=== PATIENT | male | born 1950 | race Caucasian/White ===

== ENCOUNTER → 2017-09-21 | Outpatient (CLI) | payer OTHER ==
[~2017-09-21] MED LIST: IBUP600T44 PO; OXYC-57 PO
--- NOTE | 2017-09-21 08:39 | DIAGNOSTIC IMAGING REPORT ---
CT LUNG SCREENING, LOW DOSE WITH COMPUTER-AIDED DETECTION (CAD) CLINICAL HISTORY: 45 pack-year smoking history. COMPARISON STUDY: March 22, 2015 CT DOSE: 94.98 mGy.cm TECHNIQUE: Low-dose helical CT was acquired without intravenous contrast from lung apices to bases and reconstructed at 2.5 mm every 2 mm. CAD was utilized for this study. A dose lowering technique was utilized adhering to the principles of ALARA. FINDINGS: Thyroid: Imaged portions of the thyroid gland are normal in appearance. Thoracic aorta: The thoracic aorta is normal in course and caliber, noting standard 3 vessel arch anatomy. Heart: The heart is normal in size and configuration, without pericardial effusion. Lungs and pleural spaces: There are no pleural effusions. There is moderate pulmonary emphysema. There is no focal pulmonary consolidation. There is biapical scarring. Mediastinum: There is no mediastinal lymphadenopathy. Araceli: There is no evidence of pathologic hilar adenopathy given the limitations of a noncontrast study Axilla: Clear. Upper abdomen: Partially visualized upper abdominal viscera is within normal limits. Skeletal structures: There are no lytic or blastic osseous lesions. IMPRESSION: No suspicious pulmonary masses. No evidence of pathologic adenopathy. One-year screening is recommended in follow-up. CAD FINDINGS: Overall Lung RADS Category: 1 Lung RADS Management Recommendation: Continue annual lung cancer screening. Lung RADS Follow Up Date: 2018-09-21 Lung RADS Nodule ID: Electronically signed by: Tobi Acharya M.D. 09/21/2017 8:38 AM Dictated Date/Time: 09/21/2017 8:33 AM
== END | disposition home or self-care (01) ==
LOC: C.CTS 08:22
PROVIDERS: ATTEND Internal Medicine Pulmonary Disease
DX: J44.9 Chronic obstructive pulmonary disease, unspecified (principal); F17.200 Nicotine dependence, unspecified, uncomplicated

== ENCOUNTER 2024-02-26 03:49 | Inpatient (IN) ==
[2024-02-26] MEDS: KETOROLAC TROMETHAMINE 15 MG/ML VIAL IV STA (04:26)
[2024-02-26] MEDS: ONDANSETRON INJ 2 MG/ML 2 ML VIAL IV STA ×2 (04:39→07:51)
[2024-02-26] MEDS: ONDANSETRON INJ 2 MG/ML 2 ML VIAL ONE (04:40)
[2024-02-26 04:43] LABS: Basophils # (auto) 0.02 K/uL (0.00-0.20); Basophils % (auto) 0.2 %; Eosinophils # (auto) 0.11 K/uL (0.00-0.50); Eosinophils % (auto) 1.2 %; Hematocrit (blood only) 42.2 % (42.0-52.0); Hemoglobin 13.9 g/dl (14.0-18.0); Immature Granulocytes # (auto) 0.04 K/uL (0.01-0.20); Immature Granulocytes % (auto) 0.4 %; Lymphocytes % (auto) 13.8 %; Mean Corpuscular Hemoglobin 30.8 pg (25.0-34.0); Mean Corpuscular Hgb Conc 32.9 g/dL (32.0-36.0); Mean Corpuscular Volume 93.4 fL (80.0-100.0); Mean Platelet Volume 10.3 fL (9.4-12.4); Monocytes % (auto) 1.1 %; Neutrophils # (auto) 7.82 K/uL (1.40-6.50); Neutrophils % (auto) 83.3 %; Platelet Count 208 K/uL (130-400); RDW Coefficient of Variation 12.1 % (11.5-14.5); Red Blood Count 4.52 M/uL (4.70-6.10); White Blood Count 9.39 K/ul (4.8-10.8)
[2024-02-26 04:53] LABS: Albumin Globulin Ratio 1.4 (0.9-2); Albumin Level 4.3 gm/dl (3.4-5.0); BUN Creatinine Ratio 26.3 (10-20); Bilirubin,Total 0.5 mg/dl (0.2-1.0); Calcium 9.1 mg/dl (8.6-10.3); Creatinine Clr Calc Pharmacy 78.2 ml/min; Est GFR (Non-African American) 74.2 ml/min; Globulin 3.1 gm/dl (2.5-4.0); Total Protein 7.4 gm/dl (6.0-8.3)
[2024-02-26] MEDS: fentaNYL citrate PF 100 MCG/2 ML VIAL IV STA (05:35)
[2024-02-26] MEDS: OPTIRAY 320 125ml IV ONE (05:52)
[2024-02-26 06:30] LABS: Appearance Urine Clear (Clear); Bacteria Urine Automated None Seen (None Seen); Bilirubin Urine Negative (Negative); Blood Urine Trace (Negative); Cast Urine Automated 0-2 /lpf (0-2); Color Urine Yellow; Epithelial Cell Urine Auto 0-2 /hpf (0-2); Glucose Urine UA Negative (Negative); Ketones Urine Trace (Negative); Leukocyte Esterase Urine Negative (Negative); Nitrite Urine Negative (Negative); Protein Urine Negative (Negative); RBC Urine Automated 0-2 /hpf (0-2); Specific Gravity Urine > 1.045 (1.000-1.030); Urobilinogen Urine Negative (Negative); WBC Urine Automated 0-5 /hpf (0-5)
--- NOTE | 2024-02-26 07:25 | Emergency Department Note ---
Impression & Plan Duodenal mass, Abdominal pain, acute, periumbilical, Low back pain admit to the [facility] ED Provider Note NAME: SANJEEV ALEMAN Jr AGE: 73 SEX: Male INFORMANT: Patient ED PROVIDER(S): Lindsay Hurtado DO CHIEF COMPLAINT: abdominal pain and back pain PLAN: Disposition: admit to the [facility] MEDICAL DECISION MAKING: this is a 73-year-old male patient who presents to the emergency department with abdominal pain and back pain. The patient had sudden onset of pain just below his umbilicus around 11:30 PM. It radiated through to his mid to low back. He has never had pain like this before. Patient was unable to get comfortable and came to the emergency department for evaluation. Patient denies any surgical history. He was quite nauseated but had no vomiting. He had no leukocytosis or anemia. BUN was slightly elevated at 26. Creatinine was normal. Glucose was 132. Urinalysis revealed trace ketones and trace blood but was otherwise negative. Patient was medicated with IV Toradol initially with no significant relief to his discomfort. He then went on to receive IV fentanyl and IV Dilaudid. CT angiogram of the abdomen pelvis showed evidence of a necrotic mass of the duodenum. Patient continued to complain of pain and required additional doses of IV Dilaudid and will need to go for MRI of the abdomen to further characterize this mass noted in and around the duodenum. Care/management discussed with: Patient and his , the grain oilseed or pasture farm manager and the [place] Hospitalist. Triage Nursing notes: reviewed and agree with them. Vital Signs: reviewed and remarkable for tachycardia Additional History obtained from: patient's is at the bedside Conditions affecting care: hypertension Differential Diagnosis: AAA, aortic dissection of the abdomen, gastritis, colitis, appendicitis, ureteral colic Diagnostics, independently interpreted by me: ECG: normal sinus rhythm at [address] segment elevation or signs of ischemia. There is no significant ectopy. Cardiac Monitoring: Normal sinus rhythm at 92 Imaging studies: CT scan of the abdomen/pelvis: As per stat rad HPI: 73 year old Male arrives for evaluation of abdominal pain. patient has sudden onset of pain just below the umbilicus around 11:30 PM. It radiated through to his mid to low back. He has never had pain like this before. It was associated with nausea but no vomiting.. PAST MEDICAL HISTORY: See Below, PAST SURGICAL HISTORY: None, SOCIAL HISTORY: he is , HOME MEDICATIONS: see list ALLERGIES: See Below VITALS: sulfa drugs PHYSICAL EXAMINATION: HEENT: Head - normocephalic and atraumatic. Pupils are equal, round, and reactive to light. Extraocular eye muscles are intact, and sclera are anicteric. Nose - moist nasal mucosa without discharge. Mouth - moist buccal mucosa. Oropharynx is nonerythematous and there is no tonsillar exudate or edema noted. Neck: Supple; no JVD Or cervical lymphadenopathy Heart: Regular rate and rhythm. There is a normal S1 and S2 with no murmurs, clicks, or gallops appreciated. Lungs: Clear to auscultation bilaterally with no wheezes, rales, or rhonchi. Abdomen: Soft, Moderate tenderness to palpation around the umbilicus with good bowel sounds. There are no palpable pulsatile masses or hepatosplenomegaly. There is no guarding, rigidity, or rebound noted. Extremities: No evidence of cyanosis, clubbing, or edema. There are easily palpable peripheral pulses. Skin: warm and dry with good turgor and no rashes. the emergency department treatment: Cardiac monitoring, IV Toradol,IV Zofran, IV fentanyl, IV normal saline,IV Dilaudid x 2 emergency department course: The patient was evaluated in room C-9. A complete history and physical was performed. An IV lock was initiated and labs were drawn as above. Orders were placed by protocol. The patient was medicated with IV Toradol for pain. He was given IV normal saline bolus And advanced to IV fentanyl and IV Zofran for pain and nausea. He went for CT scan of the abdomen/pelvis. upon returning from radiology, the patient continued to complain of discomfort and was given IV Dilaudid. This did give him some relief of his discomfort. I reviewed the results of the CT scan with the patient and his . He continued to complain of periumbilical pain that was returning. He went on to receive a second dose of IV Dilaudid. I discussed the case with the [facility] Hospitalist and they will evaluate for inpatient care and further evaluation with MRI of The duodenum. Past Med/Surg History Problem List (Updated 02/27/24 @ 07:39 by Lindsay Hurtado DO) Low back pain (Acute) Abdominal pain, acute, periumbilical (Acute) Duodenal mass (Acute) Bilateral inguinal hernia Duodenal mass Abdominal pain Hematoma of left lower leg (Acute) Leg wound, left Hematoma (Acute) Cellulitis (Acute) Multiple pulmonary nodules determined by computed tomography of lung Solitary pulmonary nodule Lung nodule History of tobacco abuse Chronic obstructive pulmonary disease Pulmonary emphysema Medical History Personal history of nicotine dependence History of hypertension Surgical History History of ankle surgery Family History Unknown Cerebral aneurysm COPD (chronic obstructive pulmonary disease) Social History Smoking Status: Former smoker Tobacco Type: Cigarettes Age Started Using Tobacco: 12; Age Quit Using Tobacco: 67; packs per day: 2; Cigarettes Per Day: 40; Second Hand Exposure: No; Do You Dip or Chew Tobacco: No; Hx Alcohol Use: Yes Alcohol type: beer Alcohol Intake Frequency: Monthly or Less Hx Substance Use: No Preferred Language: Estonian Communication Ability: Effective Visual Impairment: Limited Hearing Ability: Normal Block Cutter Required: No Beliefs That Will Affect Care: None marital status: Current Living Situation: Spouse current occupational status: retired Feels Safe at Home: Yes Diet: regular caffeine: Yes Assistive Devices: Glasses Allergies Allergies Allergy/AdvReac Type Severity Reaction Status Date / Time Sulfa (Sulfonamide Allergy Unknown Verified 02/23/24 09:06 Antibiotics) Home Meds Home Medications Medication Instructions Recorded Confirmed multivitamin (Daily Multi-Vitamin 1 tab PO DAILY 04/13/19 02/26/24 tablet) valsartan 320 mg tablet 320 mg PO DAILY 04/13/19 02/26/24 coenzyme Q10 [Vitaline CoQ10] 1 tab PO DIRECTED 10/30/22 02/26/24 hydrochlorothiazide 25 mg tablet 12.5 mg PO DAILY 10/30/22 02/26/24 red yeast rice 600 mg capsule 1,200 mg PO DAILY 10/30/22 02/26/24 albuterol sulfate 90 mcg/actuation 2 inh inhalation UD PRN Other 02/23/24 02/26/24 aerosol inhaler (Ventolin HFA) Previous Rx's Medication Instructions Recorded fluticasone fur. 100 mcg-umeclid 1 inh inhalation DAILY #60 ea 01/29/23 62.5 mcg-vilant 25 mcg inhalat.powder (Trelegy Ellipta) Results & Data (ED) Vital Signs Vital Signs - 24 hr 02/26/24 07:42 02/26/24 08:00 02/26/24 08:00 Pulse Rate 92 H 93 H Pulse Rate from SpO2 Sensor 90 94 H Respiratory Rate 16 18 Blood Pressure 121/80 Blood Pressure Mean 97 Pulse Oximetry 94 95 02/26/24 08:30 02/26/24 08:30 Pulse Rate 89 Pulse Rate from SpO2 Sensor 92 H Respiratory Rate 17 Blood Pressure 139/75 Blood Pressure Mean 93 Pulse Oximetry 91 Laboratory Data 02/27/24 05:48 02/27/24 05:48 Lab Results 02/26/24 02/26/24 Range/Units 04:20 06:20 WBC 9.39 (4.8-10.8) K/ul RBC 4.52 L (4.70-6.10) M/uL Hgb 13.9 L (14.0-18.0) g/dl Hct 42.2 (42.0-52.0) % MCV 93.4 (80.0-100.0) fL MCH 30.8 (25.0-34.0) pg MCHC 32.9 (32.0-36.0) g/dL RDW Std Deviation 42.0 (36.4-46.3) fL RDW Coeff of Babak 12.1 (11.5-14.5) % Plt Count 208 (130-400) K/uL MPV 10.3 (9.4-12.4) fL Immature Gran % (Auto) 0.4 % Neut % (Auto) 83.3 % Lymph % (Auto) 13.8 % [place] % (Auto) 1.1 % Eos % (Auto) 1.2 % Baso % (Auto) 0.2 % Neut # (Auto) 7.82 H (1.40-6.50) K/uL Lymph # (Auto) 1.30 (1.20-3.40) K/uL [place] # (Auto) 0.10 L (0.11-0.59) K/uL Eos # (Auto) 0.11 (0.00-0.50) K/uL Baso # (Auto) 0.02 (0.00-0.20) K/uL Immature Gran # (Auto) 0.04 (0.01-0.20) K/uL Sodium 138 (136-145) mmol/L Potassium 4.0 (3.5-5.1) mmol/L Chloride 103 (98-107) mmol/L Carbon Dioxide 29 (21-32) mmol/L Anion Gap 6 (3-11) BUN 26 H (6-23) mg/dl Creatinine 0.99 (0.6-1.4) mg/dl Est Cr Clr Drug Dosing 78.2 ml/min Est GFR ( Amer) 86.0 ml/min Est GFR (Non-Af Amer) 74.2 ml/min BUN/Creatinine Ratio 26.3 H (10-20) Glucose 132 H (70-99(Fasting)) mg/dl Calcium 9.1 (8.6-10.3) mg/dl Total Bilirubin 0.5 (0.2-1.0) mg/dl AST 19 (13-39) U/L ALT 21 (7-52) U/L Alkaline Phosphatase 112 H (34-104) U/L Total Protein 7.4 (6.0-8.3) gm/dl Albumin 4.3 (3.4-5.0) gm/dl Globulin 3.1 (2.5-4.0) gm/dl Albumin/Globulin Ratio 1.4 (0.9-2) Lipase 23 (11-82) U/L Urine Color Yellow Urine Appearance Clear (Clear) Urine pH 5.0 (4.5-7.5) Ur Specific [place] > 1.045 H (1.000-1.030) Urine Protein Negative (Negative) Urine Glucose (UA) Negative (Negative) Urine Ketones Trace H (Negative) Urine Blood Trace H (Negative) Urine Nitrite Negative (Negative) Urine Bilirubin Negative (Negative) Urine Urobilinogen Negative (Negative) Ur Leukocyte Esterase Negative (Negative) Urine WBC (Auto) 0-5 (0-5) /hpf Urine RBC (Auto) 0-2 (0-2) /hpf U Hyaline Cast (Auto) 0-2 (0-2) /lpf U Epithel Cells (Auto) 0-2 (0-2) /hpf Urine Bacteria (Auto) None Seen (None Seen) Administered Medications Acetaminophen (Acetaminophen 325 Mg Tab) 650 mg PO Q4H PRN PRN Reason: pain/fever Stop: 03/27/24 11:17 Last Admin: 02/26/24 11:44 Dose: 650 mg Documented By: FLORENCIO Fluticasone Furoate (Fluticasone Furoate 100mcg 14 Puffs/Inhaler) 1 puffs INH DAILY [facility] Stop: 03/27/24 11:17 Last Admin: 02/26/24 13:25 Dose: Not Given Documented By: HRB Potassium Chloride/Sodium Chloride (Normal Saline W/20 Meq Kcl) 20 meq in 1,000 mls @ 100 mls/hr IV .Q10H GALINDO Stop: 03/27/24 11:17 Last Infusion: 02/27/24 02:22 Dose: 100 mls/hr Documented By: Admin: 02/26/24 20:49 Dose: 100 mls/hr Documented By: Infusion: 02/26/24 20:49 Dose: Infused Documented By: Admin: 02/26/24 13:02 Dose: 100 mls/hr Documented By: HRB Pantoprazole Sodium 40 mg/ (Dextrose) 100 mls @ 20 mls/hr IV Q5H [facility] Stop: 03/27/24 15:14 Last Infusion: 02/27/24 02:22 Dose: 8 mg/hr, 20 mls/hr Documented By: Admin: 02/27/24 01:42 Dose: 8 mg/hr, 20 mls/hr Documented By: Infusion: 02/27/24 01:42 Dose: Infused Documented By: K Admin: 02/26/24 20:47 Dose: 8 mg/hr, 20 mls/hr Documented By: Infusion: 02/26/24 20:47 Dose: Infused Documented By: Admin: 02/26/24 16:10 Dose: 8 mg/hr, 20 mls/hr Documented By: HRB Piperacillin Sod/Tazobactam (Sod 4.5 gm/ Dextrose) 100 mls @ 25 mls/hr IV Q8H GALINDO; Protocol Stop: 02/28/24 19:59 Last Admin: 02/27/24 04:41 Dose: 25 mls/hr Documented By: Infusion: 02/27/24 01:05 Dose: Infused Documented By: Admin: 02/26/24 20:48 Dose: 25 mls/hr Documented By: JUDY Oxycodone HCl (Oxycodone Hcl Ir 5 Mg Tab (Immediate Release)) 5 mg PO Q4H PRN PRN Reason: Pain Stop: 03/11/24 15:38 Last Admin: 02/27/24 01:02 Dose: 5 mg Documented By: Admin: 02/26/24 16:15 Dose: 5 mg Documented By: HRB Umeclidinium/Vilanterol (Umeclidinium/Vilanterol 62.5/25mcg 7 Puffs/Inhaler) 1 puffs INH DAILY GALINDO Stop: 03/27/24 11:17 Last Admin: 02/26/24 13:25 Dose: Not Given Documented By: YONI Discontinued Medications Fentanyl Citrate (Fentanyl Citrate Pf 100 Mcg/2 Ml Vial) 50 mcg IV NOW STA Stop: 02/26/24 05:30 Last Admin: 02/26/24 05:35 Dose: 50 mcg Documented By: KEI Gadobutrol (Gadobutrol 30ml Vial) 10 ml IV ONCE ONE Stop: 02/26/24 11:45 Last Admin: 02/26/24 11:44 Dose: 10 ml Documented By: PHILIP Hydromorphone HCl (Hydromorphone Inj 0.5 Mg/0.5 Ml Syr) 0.5 mg IV NOW STA Stop: 02/26/24 07:11 Last Admin: 02/26/24 07:52 Dose: 0.5 mg Documented By: MADAN Sodium Chloride (Nss) 500 mls @ 999 mls/hr IV .Q31M ONE Stop: 02/26/24 07:40 Last Infusion: 02/26/24 08:57 Dose: Infused Documented By: Admin: 02/26/24 07:51 Dose: 999 mls/hr Documented By: MADAN Pantoprazole Sodium 40 mg/ (Syringe) 10 mls @ 5 mls/min IV NOW ONE Stop: 02/26/24 08:14 Last Admin: 02/26/24 08:41 Dose: 5 mls/min Documented By: MADAN Pantoprazole Sodium 80 mg/ (Dextrose) 120 mls @ 480 mls/hr IV NOW ONE Stop: 02/26/24 15:10 Last Infusion: 02/26/24 16:10 Dose: Infused Documented By: Admin: 02/26/24 15:29 Dose: 480 mls/hr Documented By: YONI Piperacillin Sod/Tazobactam (Sod 4.5 gm/ Dextrose) 100 mls @ 200 mls/hr IV NOW ONE; Protocol Stop: 02/26/24 15:44 Last Infusion: 02/26/24 16:37 Dose: Infused Documented By: Admin: 02/26/24 15:50 Dose: 200 mls/hr Documented By: YONI Ioversol (Optiray 320 125ml) 120 ml IV ONCE ONE Stop: 02/26/24 05:52 Last Admin: 02/26/24 05:52 Dose: 120 ml Documented By: NAZ Ketorolac Tromethamine (Ketorolac Tromethamine 15 Mg/Ml Vial) 10 mg IV NOW STA Stop: 02/26/24 04:14 Last Admin: 02/26/24 04:26 Dose: 10 mg Documented By: RANDI Metoclopramide HCl (Metoclopramide Hcl Inj 5 Mg/Ml 2 Ml Vial) 10 mg IV NOW STA Stop: 02/26/24 18:54 Last Admin: 02/26/24 18:59 Dose: 10 mg Documented By: PATRICIA Morphine Sulfate (Morphine Sulfate 2 Mg/Ml [place]) 2 mg IV Q4H PRN PRN Reason: Pain Stop: 03/11/24 11:35 Last Admin: 02/26/24 13:01 Dose: 2 mg Documented By: YONI Ondansetron HCl (Ondansetron Inj 2 Mg/Ml 2 Ml Vial) 4 mg IV NOW STA Stop: 02/26/24 04:39 Last Admin: 02/26/24 04:39 Dose: Not Given Documented By: DAVEY Ondansetron HCl (Ondansetron Inj 2 Mg/Ml 2 Ml Vial) Confirm Administered Dose 4 mg .ROUTE .STK-MED ONE Stop: 02/26/24 04:40 Last Admin: 02/26/24 04:40 Dose: 4 mg Documented By: DAVEY Ondansetron HCl (Ondansetron Inj 2 Mg/Ml 2 Ml Vial) 4 mg IV NOW STA Stop: 02/26/24 07:11 Last Admin: 02/26/24 07:51 Dose: 4 mg Documented By: MADAN Ondansetron HCl (Ondansetron Inj 2 Mg/Ml 2 Ml Vial) 4 mg IV Q6H PRN PRN Reason: Nausea Stop: 03/27/24 11:17 Last Admin: 02/26/24 13:10 Dose: 4 mg Documented By: FLORENCIO Discharge Plan Visit Data Chief Complaint: Abdominal Pain Stated Complaint: ABD PAIN AND LOWER BACK PAIN ED Provider: Lindsay Hurtado Discharge Problem: Duodenal mass, Abdominal pain, acute, periumbilical, Low back pain Patient Disposition: Admitted As Inpatient Discharge Instructions Interventions: ED Discharge Assessment Last Done: 02/26/24 10:37
--- NOTE | 2024-02-26 07:42 | CT Scan Report ---
Exam(s): CTA ABDOMEN + PELVIS With Contrast IV Amt: 120 ml opti 320 EXAM: CT Angiography Abdomen and Pelvis With Intravenous Contrast CLINICAL HISTORY: Reason for exam: eval for AAA/dissection. TECHNIQUE: Axial computed tomographic angiography images of the abdomen and pelvis with intravenous contrast. CTDI is 27.46 mGy and DLP is 1538.21 mGy-cm. Automated exposure control was utilized for the study. A dose lowering technique was utilized adhering to the principles of ALARA. MIP reconstructed images were created and reviewed. CONTRAST: Patient received 120 ml opti 320 of IV contrast COMPARISON: No relevant prior studies available. FINDINGS: VASCULATURE: Aorta: There is calcific atherosclerotic vascular disease present, no evidence to suggest dissection or aneurysm. There is calcific atherosclerotic vascular disease. Celiac trunk and mesenteric arteries: No acute findings. No occlusion or significant stenosis. Renal arteries: No acute findings. No occlusion or significant stenosis. Iliac arteries: No acute findings. No occlusion or significant stenosis. Lung bases: Unremarkable. No mass. No consolidation. ABDOMEN: Liver: Unremarkable. No mass. Gallbladder and bile ducts: See below. Pancreas: Unremarkable. No ductal dilation. No mass. Spleen: Unremarkable. No splenomegaly. Adrenals: Unremarkable. No mass. Kidneys and ureters: Unremarkable. No hydronephrosis. No solid mass. Stomach and bowel: There is 8.5 x 5.5 x 3.3 cm partially necrotic mass demonstrated along the medial second to third portion of the duodenum the gallbladder is hydropic. There is fat and nonobstructed bowel containing indirect hernia in the right side and fat-containing indirect inguinal hernia on the left side. There is diverticulosis. PELVIS: Appendix: No findings to suggest acute appendicitis. Bladder: Unremarkable. No mass. Reproductive: Unremarkable as visualized. ABDOMEN and PELVIS: Intraperitoneal space: Unremarkable. No significant fluid collection. No free air. Bones/joints: No acute fracture. No dislocation. Soft tissues: See above. Lymph nodes: Unremarkable. No enlarged lymph nodes. IMPRESSION: Abnormality demonstrated about the duodenum the primary considerations would include inflamed duodenal diverticula, exophytic necrotic mass extending from the duodenum or less likely the pancreas considered less likely additional considerations would include pseudocyst and choledochal cyst. Communications: Verify Receipt Electronically signed by: Gerald Miller MD 02/26/24 07:41 AM
[2024-02-26] MEDS: SODIUM CHLORIDE 0.9% 500 ML IV ONE (07:51)
[2024-02-26] MEDS: HYDROmorphone INJ 0.5 MG/0.5 ML SYR IV STA (07:52)
[2024-02-26] MEDS: PANTOprazole 40 MG in SYRINGE 0 ML IV ONE (08:41)
--- NOTE | 2024-02-26 09:21 | History & Physical Report ---
Date of Service February 26, 2024 Assessment & Plan (1) Abdominal pain: Plan: Patient presents to the hospital with sudden onset of abdominal pain radiating to the back. Associated constipation of about 3 days duration no nausea or vomiting. Periumbilical tenderness on exam CT scan of abdomen and pelvis showed evidence of an exophytic duodenal mass. Etiology of this mass is uncertain, will further characterize by MRI abdomen Will consult GI, patient may eventually need general surgery consult if the mass is amenable to biopsy. Will obtain CEA and also CA 19-9 Clear liquid diet for now. (2) Duodenal mass: Plan: See #1 above (3) Multiple pulmonary nodules determined by computed tomography of lung: Plan: Patient has a history of multiple pulmonary nodules, followed up by pulmonology with serial CTs (4) Chronic obstructive pulmonary disease: Plan: No wheeze on exam Continue home inhalers (5) History of hypertension: Plan: Blood pressures under good control, in this admission actually soft Will hold antihypertensive medications for now. Plan Admit to [facility] Full code History of Present Illness Chief Complaint: Abdominal pain Primary Care Provider: Ze Reddy MD This is a 73-year-old male with a history of COPD, multiple pulmonary nodules, followed by pulmonology, who presents to the hospital today with complaints of abdominal pain. According to the patient he was sitting up watching the [place] on the TV around 11 PM when he developed sudden onset of abdominal pain which radiated to the back. He thought he was going to go away and then went to bed however he could not sleep and the pain got worse so he woke up his and then decided to come to the hospital for further investigation. A week prior he had been to the emergency department with cellulitis where he was discharged and prescribed antibiotics. He initially attributed the pain to the antibiotics and abdominal discomfort and constipation with antibiotics however. Here in the emergency department basic labs were done CBC and BMP which were essentially within normal limits a CT abdomen and pelvis was done which showed evidence of an exophytic necrotic mass extending from the duodenum. Patient w ill be admitted to the hospital for further investigation and further management. Allergies Allergy/AdvReac Type Severity Reaction Status Date / Time Sulfa (Sulfonamide Allergy Unknown Verified 02/23/24 09:06 Antibiotics) Home Medications Medication Instructions Recorded Confirmed Type multivitamin (Daily Multi-Vitamin 1 tab PO DAILY 04/13/19 02/26/24 History tablet) valsartan 320 mg tablet 320 mg PO DAILY 04/13/19 02/26/24 History coenzyme Q10 [Vitaline CoQ10] 1 tab PO DIRECTED 10/30/22 02/26/24 History hydrochlorothiazide 25 mg tablet 12.5 mg PO DAILY 10/30/22 02/26/24 History red yeast rice 600 mg capsule 1,200 mg PO DAILY 10/30/22 02/26/24 History fluticasone fur. 100 mcg-umeclid 1 inh inhalation DAILY #60 ea 01/29/23 02/26/24 Rx 62.5 mcg-vilant 25 mcg inhalat.powder (Trelegy Ellipta) albuterol sulfate 90 mcg/actuation 2 inh inhalation UD PRN Other 02/23/24 02/26/24 History aerosol inhaler (Ventolin HFA) Past Med/Surg History Problem List (Updated 02/26/24 @ 09:18 by Titi Pardo MD) Duodenal mass Abdominal pain Hematoma of left lower leg (Acute) Leg wound, left Hematoma (Acute) Cellulitis (Acute) Multiple pulmonary nodules determined by computed tomography of lung Solitary pulmonary nodule Lung nodule History of tobacco abuse Chronic obstructive pulmonary disease Pulmonary emphysema Medical History Personal history of nicotine dependence History of hypertension Surgical History History of ankle surgery Family History Unknown Cerebral aneurysm COPD (chronic obstructive pulmonary disease) Social History Smoking Status: Never smoker Tobacco Type: Cigarettes Age Started Using Tobacco: 12; Age Quit Using Tobacco: 67; packs per day: 2; Cigarettes Per Day: 40; Second Hand Exposure: No; Hx Alcohol Use: Yes Alcohol type: beer Alcohol Intake Frequency: Monthly or Less Hx Substance Use: No Preferred Language: Portuguese Visual Impairment: Limited Hearing Ability: Normal Ship Mate Required: No Beliefs That Will Affect Care: None marital status: Current Living Situation: Spouse current occupational status: retired Feels Safe at Home: Yes Diet: regular caffeine: Yes Review of Systems Review of Systems: All systems reviewed are negative, apart from the ones contained in the history. Physical Exam Physical Exam: The patient is awake, alert and oriented 3, well developed and well nourished, normocephalic and atraumatic, lying in bed and in no acute distress. HEENT--PERRL, EOMI, mucous membranes and oropharynx mildly dry Neck--supple. No JVD. No bruits. Thyroid normal, trachea midline, no adenopathy. Heart--normal S1 and S2. No murmurs, rubs or gallops. Lungs--clear bilaterally, no respiratory distress, no accessory muscle use. Abdomen--normal bowel sounds and soft. Mild periumbilical tenderness Extremities--no cyanosis or clubbing. No edema. Dermatologic--normal skin turgor, normal color, no abnormal lymph nodes, no rash. Neurologic--cranial nerves II through XII grossly intact. Rheumatologic--normal range of motion. Psychiatric--normal affect. Results & Data Results & Data Vital Signs (Past 12 Hours) Vital Signs Temp Pulse Pulse Resp BP BP Pulse Ox 02/26/24 08:30 89 17 91 02/26/24 08:30 139/75 02/26/24 08:00 93 H 18 95 02/26/24 08:00 121/80 02/26/24 07:42 92 H 16 94 02/26/24 07:30 142/72 H 02/26/24 07:18 87 19 94 02/26/24 07:00 91 H 17 95 02/26/24 06:02 100 H 22 108/62 97 02/26/24 04:42 84 02/26/24 03:58 98.1 F 90 20 157/77 H 96 O2 Del Method 02/26/24 08:30 02/26/24 08:30 02/26/24 08:00 02/26/24 08:00 02/26/24 07:42 02/26/24 07:30 02/26/24 07:18 02/26/24 07:00 02/26/24 06:02 Room Air 02/26/24 04:42 02/26/24 03:58 Room Air PG Care Time/CCT Total # of Minutes Spent Total Time Spent with Patient: Total time spent is greater than 50% in coordination of care (as documented) at patient's floor/unit and/or counseling patient: Coding Level of Care Code 69522 INT INP/OBS CARE 3/75MIN Diagnoses Abdominal pain R10.9 Duodenal mass K31.89 Multiple pulmonary nodules determined by computed tomography of lung R91.8 Centrilobular emphysema J43.2 COPD type: emphysema Emphysema type: centrilobular History of hypertension Z86.79 Time Spent (min) 75 (4) Chronic obstructive pulmonary disease COPD type: emphysema Emphysema type: centrilobular Qualified Code(s): J43.2 - Centrilobular emphysema
[2024-02-26] MEDS ORDERED: POLYETHYLENE (MIRALAX) 17 GM PACK PO PRN (11:18)
[2024-02-26] MEDS: ACETAMINOPHEN 325 MG TAB PO PRN (11:44)
[2024-02-26] MEDS: GADOBUTROL 30ML VIAL IV ONE (11:44)
[2024-02-26] MEDS: MoRPHine SULFATE 2 MG/ML CARP IV PRN (13:01)
[2024-02-26] MEDS: NSS + 20MEQ KCL 20 MEQ/1,000 ML BAG IV SCH (13:02)
[2024-02-26] MEDS: ONDANSETRON INJ 2 MG/ML 2 ML VIAL IV PRN (13:10)
--- NOTE | 2024-02-26 13:18 | Magnetic Resonance Report ---
MR abdomen wo/w con CLINICAL HISTORY: duodenal mass TECHNIQUE: Multiplanar multisequence images were obtained of the abdomen with and without the adminis tration of contrast. COMPARISON: Comparison is made to CT abdomen pelvis 02/26/2024 FINDINGS: Lower chest: No acute abnormality Liver: Unremarkable. No focal lesions are seen. Gallbladder and biliary tree: No calcified gallstones. Normal caliber wall. No intra- or extrahepatic biliary ductal dilation. Pancreas: Fatty replacement of the pancreas is seen. Spleen: Unremarkable. Adrenals: Unremarkable. Kidneys and ureters: Unremarkable. Bowel: There is a 52 x 47 x 76 mm lesion containing following gaseous contents with surrounding fluid . Only peripheral enhancement is seen. Lymph nodes Retroperitoneal: Unremarkable. Mesenteric: Unremarkable. Peritoneum: Normal Vessels: Unremarkable. Abdominal wall: Unremarkable. Bones: Unremarkable. IMPRESSION: A large duodenal mass is seen with nonenhancing solid and fluid contents. Findings may represent a du odenal mass or contained perforated ulcer. ACT 112: Negative or not required by law. Electronically signed by: Twan Lozada M.D. 02/26/2024 1:16 PM
[2024-02-26] MEDS: FLUTICASONE FUROATE 100MCG 14 PUFFS/INHALER INH SCH (13:25)
[2024-02-26] MEDS: UMECLIDINIUM/VILANTEROL 62.5/25MCG 7 PUFFS/INHALER INH SCH (13:25)
[2024-02-26] MEDS ORDERED: PANTOPRAZOLE BOLUS/DRIP IV STA ×2 (14:56)
[2024-02-26] MEDS ORDERED: PANTOprazole 80 MG in DEXTROSE 5% 100 ML IV ONE (14:56)
--- NOTE | 2024-02-26 14:56 | Gastrointestinal Consultation ---
Date of Consultation February 26, 2024 Assessment & Plan (1) Duodenal mass: DDx includes benign and malignant processes. The abrupt onset associated with persistent pain and now chills raises question for some version of contained perforation. While D2/3 is an unusual location for PUD, imaging is of course limited at times and he has been taking more NSAIDs of late. His back pain suggests a RP component which would support D1/D2 involvement. (2) Leg wound, left: Plan - recommend IV abx - recommend IV PPI - NPO pending clarity on the process at hand; IV fluids recommended along with pain control - recommend surgery consultation for completion although hopeful surgery not needed - EGD vs IR vs surgical approach to obtain a tissue/direct visual diagnosis anticipated pending the above - tumor markers are pending History of Present Illness Reason for Consultation: duodenal mass Attending Physician: Titi Pardo MD History of Present Illness 73 year old male with COPD, pulmonary nodules and recent leg injury who presented to the ER overnight with the acute onset of periumbilical pain radiating to his back. He reports no GI symptoms whatsoever until the abrupt onset of this pain. He did suffer a traumatic leg injury on January 26 for which he was eventually seen in the ER. He was thereafter seen by ortho and the wound clinic. He took a 10 day course of abx which completed about 2 days ago. He has been taking 3 ibuprofen daily for his leg of late but typically rarely takes NSAIDs. He had no fever or chills at home but does feel chills now. The pain has not abated since it began aside from lessening to some degree after receiving fentanyl in the ER. In the ER, he was noted to have a normal WBC, hgb and creatinine. A CT scan was notable for and 8.5*5.5*3.3 cm "mass" in the 2-3rd portion of the duodenum and a hydropic gallbadder. He just returned from MR which described a 5.2*4.7*7.6 cm lesion in the same region with gaseous content. He has not had an EGD. A colonoscopy was completed in 2015. Allergies Allergy/AdvReac Type Severity Reaction Status Date / Time Sulfa (Sulfonamide Allergy Unknown Verified 02/23/24 09:06 Antibiotics) Home Medications Medication Instructions Recorded Confirmed Type multivitamin (Daily Multi-Vitamin 1 tab PO DAILY 04/13/19 02/26/24 History tablet) valsartan 320 mg tablet 320 mg PO DAILY 04/13/19 02/26/24 History coenzyme Q10 [Vitaline CoQ10] 1 tab PO DIRECTED 10/30/22 02/26/24 History hydrochlorothiazide 25 mg tablet 12.5 mg PO DAILY 10/30/22 02/26/24 History red yeast rice 600 mg capsule 1,200 mg PO DAILY 10/30/22 02/26/24 History fluticasone fur. 100 mcg-umeclid 1 inh inhalation DAILY #60 ea 01/29/23 02/26/24 Rx 62.5 mcg-vilant 25 mcg inhalat.powder (Trelegy Ellipta) albuterol sulfate 90 mcg/actuation 2 inh inhalation UD PRN Other 02/23/24 02/26/24 History aerosol inhaler (Ventolin HFA) Patient History Medical History Personal history of nicotine dependence History of hypertension Surgical History History of ankle surgery Family History Unknown Cerebral aneurysm COPD (chronic obstructive pulmonary disease) Social History Smoking Status: Former smoker Tobacco Type: Cigarettes Age Started Using Tobacco: 12; Age Quit Using Tobacco: 67; packs per day: 2; Cigarettes Per Day: 40; Second Hand Exposure: No; Do You Dip or Chew Tobacco: No; Hx Alcohol Use: Yes Alcohol type: beer Alcohol Intake Frequency: Monthly or Less Hx Substance Use: No Preferred Language: Lithuanian Communication Ability: Effective Visual Impairment: Limited Hearing Ability: Normal Special Events Assistant Required: No Beliefs That Will Affect Care: None marital status: Current Living Situation: Spouse current occupational status: retired Feels Safe at Home: Yes Diet: regular caffeine: Yes Assistive Devices: Glasses Review of Systems Review of Systems: All systems reviewed & are unremarkable except as noted in HPI & below Physical Exam Constitutional: appears non-toxic but uncomfortable Eyes: PERRL, conjunctivae normal, anicteric sclerae Respiratory: normal respiratory effort, lungs clear to auscultation Cardiovascular: RRR, no murmur, no edema Gastrointestinal (Abdomen): periumbilical TTP, soft, NABS Skin: LLE stocking and dressing in place, C/D/I Results & Data Vital Signs (Past 12 Hours) Vital Signs Temp Pulse Pulse Pulse Resp BP BP 02/26/24 10:40 36.7 C 83 16 106/69 02/26/24 10:37 02/26/24 09:42 90 19 02/26/24 09:30 136/72 02/26/24 09:24 90 19 02/26/24 09:12 94 H 16 02/26/24 09:00 142/74 H 02/26/24 08:39 95 H 18 02/26/24 08:30 89 17 02/26/24 08:30 139/75 02/26/24 08:00 93 H 18 02/26/24 08:00 121/80 02/26/24 07:42 92 H 16 02/26/24 07:30 142/72 H 02/26/24 07:18 87 19 02/26/24 07:00 91 H 17 02/26/24 06:02 100 H 22 108/62 02/26/24 04:42 84 02/26/24 03:58 36.7 C 90 20 157/77 H Pulse Ox O2 Del Method 02/26/24 10:40 95 Room Air 02/26/24 10:37 Room Air 02/26/24 09:42 91 02/26/24 09:30 02/26/24 09:24 93 02/26/24 09:12 92 02/26/24 09:00 02/26/24 08:39 91 02/26/24 08:30 91 02/26/24 08:30 02/26/24 08:00 95 02/26/24 08:00 02/26/24 07:42 94 02/26/24 07:30 02/26/24 07:18 94 02/26/24 07:00 95 02/26/24 06:02 97 Room Air 02/26/24 04:42 02/26/24 03:58 96 Room Air Laboratory Results Laboratory Results - last 48 hr 02/26/24 02/26/24 04:20 06:20 WBC 9.39 RBC 4.52 L Hgb 13.9 L Hct 42.2 MCV 93.4 MCH 30.8 MCHC 32.9 RDW Std Deviation 42.0 RDW Coeff of Babak 12.1 Plt Count 208 MPV 10.3 Immature Gran % (Auto) 0.4 Neut % (Auto) 83.3 Lymph % (Auto) 13.8 [place] % (Auto) 1.1 Eos % (Auto) 1.2 Baso % (Auto) 0.2 Neut # (Auto) 7.82 H Lymph # (Auto) 1.30 Merrick # (Auto) 0.10 L Eos # (Auto) 0.11 Baso # (Auto) 0.02 Immature Gran # (Auto) 0.04 Sodium 138 Potassium 4.0 Chloride 103 Carbon Dioxide 29 Anion Gap 6 BUN 26 H Creatinine 0.99 Est Cr Clr Drug Dosing 78.2 Est GFR ( Amer) 86.0 Est GFR (Non-Af Amer) 74.2 BUN/Creatinine Ratio 26.3 H Glucose 132 H Calcium 9.1 Total Bilirubin 0.5 AST 19 ALT 21 Alkaline Phosphatase 112 H Total Protein 7.4 Albumin 4.3 Globulin 3.1 Albumin/Globulin Ratio 1.4 Lipase 23 Urine Color Yellow Urine Appearance Clear Urine pH 5.0 Ur Specific [place] > 1.045 H Urine Protein Negative Urine Glucose (UA) Negative Urine Ketones Trace H Urine Blood Trace H Urine Nitrite Negative Urine Bilirubin Negative Urine Urobilinogen Negative Ur Leukocyte Esterase Negative Urine WBC (Auto) 0-5 Urine RBC (Auto) 0-2 U Hyaline Cast (Auto) 0-2 U Epithel Cells (Auto) 0-2 Urine Bacteria (Auto) None Seen Diagnostic Findings Abdomen/Pelvis CTA 02/26/24 05:29 CR Exam(s): CTA ABDOMEN + PELVIS With Contrast IV Amt: 120 ml opti 320 EXAM: CT Angiography Abdomen and Pelvis With Intravenous Contrast CLINICAL HISTORY: Reason for exam: eval for AAA/dissection. TECHNIQUE: Axial computed tomographic angiography images of the abdomen and pelvis with intravenous contrast. CTDI is 27.46 mGy and DLP is 1538.21 mGy-cm. Automated exposure control was utilized for the study. A dose lowering technique was utilized adhering to the principles of ALARA. MIP reconstructed images were created and reviewed. CONTRAST: Patient received 120 ml opti 320 of IV contrast COMPARISON: No relevant prior studies available. FINDINGS: VASCULATURE: Aorta: There is calcific atherosclerotic vascular disease present, no evidence to suggest dissection or aneurysm. There is calcific atherosclerotic vascular disease. Celiac trunk and mesenteric arteries: No acute findings. No occlusion or significant stenosis. Renal arteries: No acute findings. No occlusion or significant stenosis. Iliac arteries: No acute findings. No occlusion or significant stenosis. Lung bases: Unremarkable. No mass. No consolidation. ABDOMEN: Liver: Unremarkable. No mass. Gallbladder and bile ducts: See below. Pancreas: Unremarkable. No ductal dilation. No mass. Spleen: Unremarkable. No splenomegaly. Adrenals: Unremarkable. No mass. Kidneys and ureters: Unremarkable. No hydronephrosis. No solid mass. Stomach and bowel: There is 8.5 x 5.5 x 3.3 cm partially necrotic mass demonstrated along the medial second to third portion of the duodenum the gallbladder is hydropic. There is fat and nonobstructed bowel containing indirect hernia in the right side and fat-containing indirect inguinal hernia on the left side. There is diverticulosis. PELVIS: Appendix: No findings to suggest acute appendicitis. Bladder: Unremarkable. No mass. Reproductive: Unremarkable as visualized. ABDOMEN and PELVIS: Intraperitoneal space: Unremarkable. No significant fluid collection. No free air. Bones/joints: No acute fracture. No dislocation. Soft tissues: See above. Lymph nodes: Unremarkable. No enlarged lymph nodes. IMPRESSION: Abnormality demonstrated about the duodenum the primary considerations would include inflamed duodenal diverticula, exophytic necrotic mass extending from the duodenum or less likely the pancreas considered less likely additional considerations would include pseudocyst and choledochal cyst. Communications: Verify Receipt Electronically signed by: Gerald Miller MD 02/26/24 07:41 AM Abdomen MRI 02/26/24 11:18 MR abdomen wo/w con CLINICAL HISTORY: duodenal mass TECHNIQUE: Multiplanar multisequence images were obtained of the abdomen with and without the administration of contrast. COMPARISON: Comparison is made to CT abdomen pelvis 02/26/2024 FINDINGS: Lower chest: No acute abnormality Liver: Unremarkable. No focal lesions are seen. Gallbladder and biliary tree: No calcified gallstones. Normal caliber wall. No intra- or extrahepatic biliary ductal dilation. Pancreas: Fatty replacement of the pancreas is seen. Spleen: Unremarkable. Adrenals: Unremarkable. Kidneys and ureters: Unremarkable. Bowel: There is a 52 x 47 x 76 mm lesion containing following gaseous contents with surrounding fluid. Only peripheral enhancement is seen. Lymph nodes Retroperitoneal: Unremarkable. Mesenteric: Unremarkable. Peritoneum: Normal Vessels: Unremarkable. Abdominal wall: Unremarkable. Bones: Unremarkable. IMPRESSION: A large duodenal mass is seen with nonenhancing solid and fluid contents. Findings may represent a duodenal mass or contained perforated ulcer. ACT 112: Negative or not required by law. Electronically signed by: Twan Lozada M.D. 02/26/2024 1:16 PM PG Care Time/CCT Total # of Minutes Spent Total Time Spent with Patient: Total time spent is greater than 50% in coordination of care (as documented) at patient's floor/unit and/or counseling patient: Coding Level of Care Code 94445 INT INP/OBS CARE 3/75MIN Diagnoses Duodenal mass 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
[2024-02-26] MEDS ORDERED: PIPERACILLIN/TAZOBACTAM 4.5 GM in DEXTROSE 5% MINI-B 100 ML IV SCH (15:00)
[2024-02-26] MEDS ORDERED: PANTOprazole 40 MG in DEXTROSE 5% MINI-B 100 ML IV SCH (15:15)
[2024-02-26] MEDS: PANTOprazole 80 MG in DEXTROSE 5% 100 ML IV ONE (15:29)
[2024-02-26] MEDS: PIPER/TAZO 4.5g in D5W MINI-B 100 ML IV ONE (15:50)
--- NOTE | 2024-02-26 16:07 | Surgery Consultation ---
Date of Consultation February 26, 2024 Assessment & Plan (1) Duodenal mass: Patient is a pleasant 73 yo male with COPD, Tobacco abuse, pulmonary nodule, left lower leg wound that presented to the [facility] ER 02/25/24 with c/o abdominal pain that radiates to his back. He reports that this was an sudden onset of pain last night, and it was so intense it cause him to feel nauseated however he did not vomit. He denies fever, chills, SOB, CP. He reports a history of gastric reflux, and denies medication for this. He has never had an upper GI, and had been compliant with his colonoscopies up until his PCP told him did not need to have them any more due to his age. He denies prior abdominal surgical history. He follows with pulmonary and cardiology as an O/P. A CT scan of the abd /pelvis is showing : There is 8.5 x 5.5 x 3.3 cm partially necrotic mass demonstrated along the medial second to third portion of the duodenum the gallbladder is hydropic. There is fat and nonobstructed bowel containing indirect hernia in the right side and fat-containing indirect inguinal hernia on the left side. General surgery was consulted for recommendations. An MRI of the abd was obtained and is reading : A large duodenal mass is seen with nonenhancing solid and fluid contents. Findings may represent a duodenal mass or contained perforated ulcer. On exam the patient is no acute distress , VSS, afebrile, WBC and H/H wnl obese abdomen , soft TTP epigastric area , with radiation to back , no masses or skin color change noted If the patient does have a duodenal mass this would be best biopsied by EGD or possibly IR, General surgery typically does not do duodenal resections/ biopsy at this facility. Given there is concern for a perforation it is best that we keep the patient NPO until there is a definitive diagnosis of mass vs perforation. Keep NPO IV Fluids for hydration IV antiemetic PRN IV analgesic PRN Will discuss case with on-call surgeon and further recommendations will be forthcoming. (2) Abdominal pain: (3) Bilateral inguinal hernia: Bilateral inguinal hernias , right side felt defect, reducible, pt reports he will having bulging with coughing or straining however neither the RIH or LIH is painful No surgical intervention as these do not bother the patient and are non obstructing Supervising Physician Co-Signing Physician Notes Patient discussed with Ashley HARKINS, agree with above. See today's progress note for further details. History of Present Illness Reason for Consultation: duodenal mass Requesting Physician: Dr. Pardo Attending Physician: Titi Pardo MD History of Present Illness Patient is a pleasant 73 yo male with COPD, Tobacco abuse, pulmonary nodule, left lower leg wound that presented to the [facility] ER 02/25/24 with c/o abdominal pain that radiates to his back. He reports that this was an sudden onset of pain last night, and it was so intense it cause him to feel nauseated however he did not vomit. He denies fever, chills, SOB, CP. He reports a history of gastric reflux, and denies medication for this. He has never had an upper GI, and had been compliant with his colonoscopies up until his PCP told him did not need to have them any more due to his age. He denies prior abdominal surgical history. He follows with pulmonary and cardiology as an O/P. A CT scan of the abd /pelvis is showing : There is 8.5 x 5.5 x 3.3 cm partially necrotic mass demonstrated along the medial second to third portion of the duodenum the gallbladder is hydropic. There is fat and nonobstructed bowel c ontaining indirect hernia in the right side and fat-containing indirect inguinal hernia on the left side. General surgery was consulted for recommendations. Allergies Allergy/AdvReac Type Severity Reaction Status Date / Time Sulfa (Sulfonamide Allergy Unknown Verified 02/23/24 09:06 Antibiotics) Home Medications Medication Instructions Recorded Confirmed Type multivitamin (Daily Multi-Vitamin 1 tab PO DAILY 04/13/19 02/26/24 History tablet) valsartan 320 mg tablet 320 mg PO DAILY 04/13/19 02/26/24 History coenzyme Q10 [Vitaline CoQ10] 1 tab PO DIRECTED 10/30/22 02/26/24 History hydrochlorothiazide 25 mg tablet 12.5 mg PO DAILY 10/30/22 02/26/24 History red yeast rice 600 mg capsule 1,200 mg PO DAILY 10/30/22 02/26/24 History fluticasone fur. 100 mcg-umeclid 1 inh inhalation DAILY #60 ea 01/29/23 02/26/24 Rx 62.5 mcg-vilant 25 mcg inhalat.powder (Trelegy Ellipta) albuterol sulfate 90 mcg/actuation 2 inh inhalation UD PRN Other 02/23/24 02/26/24 History aerosol inhaler (Ventolin HFA) Patient History Medical History Personal history of nicotine dependence History of hypertension Surgical History History of ankle surgery Family History Unknown Cerebral aneurysm COPD (chronic obstructive pulmonary disease) Social History Smoking Status: Former smoker Tobacco Type: Cigarettes Age Started Using Tobacco: 12; Age Quit Using Tobacco: 67; packs per day: 2; Cigarettes Per Day: 40; Second Hand Exposure: No; Do You Dip or Chew Tobacco: No; Hx Alcohol Use: Yes Alcohol type: beer Alcohol Intake Frequency: Monthly or Less Hx Substance Use: No Preferred Language: Tamazight Communication Ability: Effective Visual Impairment: Limited Hearing Ability: Normal Continuity Manager Required: No Beliefs That Will Affect Care: None marital status: Current Living Situation: Spouse current occupational status: retired Feels Safe at Home: Yes Diet: regular caffeine: Yes Assistive Devices: Glasses Review of Systems Constitutional: no fever and no chills feels hospital is cold Eyes: + corrective lenses Ear, Nose, Mouth, Throat: no pain with swallowing Respiratory: no dyspnea Cardiovascular: no chest pain Gastrointestinal: + abdominal pain and + nausea; no bloati ng and no vomiting Genitourinary: no dysuria Musculoskeletal: no muscle weakness Integumentary: + wounds (LLE) Psychiatric: no confusion Physical Exam Constitutional: cooperative and comfortable; no acute distress Respiratory: normal respiratory effort and able to speak in complete sentences; no respiratory distress Cardiovascular: Rate/Rhythm: regular rate Gastrointestinal (Abdomen): Inspection/Auscultation: + visible herniation (RIH , pt reports will bulge when coughing ); abdomen not distended Percussion/Palpation: + abdomen tender, + guarding and abdomen soft; abdomen not firm Musculoskeletal: no cyanosis or clubbing, extremities motor strength 5/5 Skin: + wound (LLE covered with bandage) Psychiatric: A+Ox3, euthymic affect Results & Data Vital Signs (Past 12 Hours) Vital Signs Temp Pulse Pulse Pulse Resp BP BP 02/26/24 14:58 98.1 F 86 18 115/65 02/26/24 10:40 98.1 F 83 16 106/69 02/26/24 10:37 02/26/24 09:42 90 19 02/26/24 09:30 136/72 02/26/24 09:24 90 19 02/26/24 09:12 94 H 16 02/26/24 09:00 142/74 H 02/26/24 08:39 95 H 18 02/26/24 08:30 89 17 02/26/24 08:30 139/75 02/26/24 08:00 93 H 18 02/26/24 08:00 121/80 02/26/24 07:42 92 H 16 02/26/24 07:30 142/72 H 02/26/24 07:18 87 19 02/26/24 07:00 91 H 17 02/26/24 06:02 100 H 22 108/62 02/26/24 04:42 84 02/26/24 03:58 98.1 F 90 20 157/77 H Pulse Ox O2 Del Method 02/26/24 14:58 93 Room Air 02/26/24 10:40 95 Room Air 02/26/24 10:37 Room Air 02/26/24 09:42 91 02/26/24 09:30 02/26/24 09:24 93 02/26/24 09:12 92 02/26/24 09:00 02/26/24 08:39 91 02/26/24 08:30 91 02/26/24 08:30 02/26/24 08:00 95 02/26/24 08:00 02/26/24 07:42 94 02/26/24 07:30 02/26/24 07:18 94 02/26/24 07:00 95 02/26/24 06:02 97 Room Air 02/26/24 04:42 02/26/24 03:58 96 Room Air Diagnostic Findings [employer] [facility], [place] [phone] Magnetic Resonance Report Patient: SANJEEV ALEMAN Jr Admit Date: 02/26/24 MR#: [id number] Address1: [address] Acct ID:[id number] Address2: Date: 1950 [facility] Zip: [place] [address] Age: 73 Location: 3W Sex: M [facility]Bed: [facility] Att Phy: Titi Pardo MD Diagnosis: ABD PAIN, DUODENAL MASS Shira Phy: Irene Reddy MD Service Date: 02/26/24 Fam Phy: Interpreting Phy: Twan Lozada MDAdmit Phy: Titi Pardo MD Ordering Phy: Titi Pardo MD cc: ~ MR abdomen wo/w con CLINICAL HISTORY: duodenal mass TECHNIQUE: Multiplanar multisequence images were obtained of the abdomen with and without the administration of contrast. COMPARISON: Comparison is made to CT abdomen pelvis 02/26/2024 FINDINGS: Lower chest: No acute abnormality Liver: Unremarkable. No focal lesions are seen. Gallbladder and biliary tree: No calcified gallstones. Normal caliber wall. No intra- or extrahepatic biliary ductal dilation. Pancreas: Fatty replacement of the pancreas is seen. Spleen: Unremarkable. Adrenals: Unremarkable. Kidneys and ureters: Unremarkable. Bowel: There is a 52 x 47 x 76 mm lesion containing following gaseous contents with surrounding fluid. Only peripheral enhancement is seen. Lymph nodes Retroperitoneal: Unremarkable. Mesenteric: Unremarkable. Peritoneum: Normal Vessels: Unremarkable. Abdominal wall: Unremarkable. Bones: Unremarkable. IMPRESSION: A large duodenal mass is seen with nonenhancing solid and fluid contents. Findings may represent a duodenal mass or contained perforated ulcer. ACT 112: Negative or not required by law. Electronically signed by: Twan Lozada M.D. 02/26/2024 1:16 PM Dictated: 02/26/24 1248 Transcribed: 02/26/24 1248 [place], [place] [phone] CT Scan Report Patient: SANJEEV ALEMAN Jr Admit Date: 02/26/24 MR#: [id number] Address1: [address] Acct ID:[id number] Address2: Date: 1950 [facility] Zip: [place] [address] Age: 73 Location: ED Sex: M Room/Bed: Att Phy: Diagnosis: ABD PAIN AND LOWER BACK PAIN Shira Phy: Irene Reddy MD Service Date: 02/26/24 [facility] Phy: Interpreting Phy: Gerald Miller DOAdmit Phy: Ordering Phy: Lindsay Hurtado D.O. cc: ~ ADDENDUM ADDENDUM: 02/26/24 07:50 Verify Receipt Verified receipt with Senior Web Developer Lore for Dr. Hurtado on 02/25 07:50 (-04:00) Electronically signed by: Gerald Miller MD Electronically signed by: Gerald Miller MD 02/26/24 07:41 AM ADDENDUM END Exam(s): CTA ABDOMEN + PELVIS With Contrast IV Amt: 120 ml opti 320 EXAM: CT Angiography Abdomen and Pelvis With Intravenous Contrast CLINICAL HISTORY: Reason for exam: eval for AAA/dissection. TECHNIQUE: Axial computed tomographic angiography images of the abdomen and pelvis with intravenous contrast. CTDI is 27.46 mGy and DLP is 1538.21 mGy-cm. Automated exposure control was utilized for the study. A dose lowering technique was utilized adhering to the principles of ALARA. MIP reconstructed images were created and reviewed. CONTRAST: Patient received 120 ml opti 320 of IV contrast COMPARISON: No relevant prior studies available. FINDINGS: VASCULATURE: Aorta: There is calcific atherosclerotic vascular disease present, no evidence to suggest dissection or aneurysm. There is calcific atherosclerotic vascular disease. Celiac trunk and mesenteric arteries: No acute findings. No occlusion or significant stenosis. Renal arteries: No acute findings. No occlusion or significant stenosis. Iliac arteries: No acute findings. No occlusion or significant stenosis. Lung bases: Unremarkable. No mass. No consolidation. ABDOMEN: Liver: Unremarkable. No mass. Gallbladder and bile ducts: See below. Pancreas: Unremarkable. No ductal dilation. No mass. Spleen: Unremarkable. No splenomegaly. Adrenals: Unremarkable. No mass. Kidneys and ureters: Unremarkable. No hydronephrosis. No solid mass. Stomach and bowel: There is 8.5 x 5.5 x 3.3 cm partially necrotic mass demonstrated along the medial second to third portion of the duodenum the gallbladder is hydropic. There is fat and nonobstructed bowel containing indirect hernia in the right side and fat-containing indirect inguinal hernia on the left side. There is diverticulosis. PELVIS: Appendix: No findings to suggest acute appendicitis. Bladder: Unremarkable. No mass. Reproductive: Unremarkable as visualized. ABDOMEN and PELVIS: Intraperitoneal space: Unremarkable. No significant fluid collection. No free air. Bones/joints: No acute fracture. No dislocation. Soft tissues: See above. Lymph nodes: Unremarkable. No enlarged lymph nodes. IMPRESSION: Abnormality demonstrated about the duodenum the primary considerations would include inflamed duodenal diverticula, exophytic necrotic mass extending from the duodenum or less likely the pancreas considered less likely additional considerations would include pseudocyst and choledochal cyst. Communications: Verify Receipt Electronically signed by: Gerald Miller MD 02/26/24 07:41 AM Dictated: 02/26/24740 Transcribed: 02/26/24740 Results CBC w Diff Results: RBC 3.85 M/uL (4.70-6.10) L 02/27/24 WBC 12.50 K/ul (4.8-10.8) H 02/27/24 Hgb 11.8 g/dl (14.0-18.0) L 02/27/24 Hct 35.7 % (42.0-52.0) L 02/27/24 MCV 92.7 fL (80.0-100.0) 02/27/24 MCH 30.6 pg (25.0-34.0) 02/27/24 MCHC 33.1 g/dL (32.0-36.0) 02/27/24 RDW Standard Deviation 43.8 fL (36.4-46.3) 02/27/24 RDW Coefficient of Variation 12.9 % (11.5-14.5) 02/27/24 Plt Count 161 K/uL (130-400) 02/27/24 MPV 11.0 fL (9.4-12.4) 02/27/24 Neutrophils (%) (Auto) 83.3 % 02/26/24 Lymphocytes (%) (Auto) 13.8 % 02/26/24 Monocytes # (Auto) 0.10 K/uL (0.11-0.59) L 02/26/24 Eosinophils # (Auto) 0.11 K/uL (0.00-0.50) 02/26/24 Immature Granulocyte % (Auto) 0.4 % 02/26/24 Neutrophils # (Auto) 7.82 K/uL (1.40-6.50) H 02/26/24 Lymphocytes # (Auto) 1.30 K/uL (1.20-3.40) 02/26/24 Monocytes # (Auto) 0.10 K/uL (0.11-0.59) L 02/26/24 Eosinophils # (Auto) 0.11 K/uL (0.00-0.50) 02/26/24 Basophils # (Auto) 0.02 K/uL (0.00-0.20) 02/26/24 Immature Granulocyte # (Auto) 0.04 K/uL (0.01-0.20) 4 PG Care Time/CCT Total # of Minutes Spent Total Time Spent with Patient: Total time spent is greater than 50% in coordination of care (as documented) at patient's floor/unit and/or counseling patient: Coding Level of Care Code 40901 INT INP/OBS CARE 140MIN Diagnoses Duodenal mass K31.89 Abdominal pain R10.9 Bilateral inguinal hernia K40.20
[2024-02-26] MEDS: PANTOprazole 40 MG in DEXTROSE 5% MINI-B 100 ML IV SCH (16:10)
[2024-02-26] MEDS: oxyCODONE HCL IR 5 MG TAB (IMMEDIATE RELEASE) PO PRN (16:15)
[2024-02-26] MEDS: METOCLOPRAMIDE HCL INJ 5 MG/ML 2 ML VIAL IV STA (18:59)
[2024-02-26] MEDS ORDERED: MoRPHine SULFATE 2 MG/ML CARP IV PRN (19:09)
[2024-02-26] MEDS: PIPER/TAZO 4.5g in D5W MINI-B 100 ML IV SCH (20:48)
[2024-02-27] MEDS ORDERED: Nursing to Pharmacy Communication SCH ×3 (04:15→22:45)
[2024-02-27 06:34] LABS: Hematocrit (blood only) 35.7 % (42.0-52.0); Hemoglobin 11.8 g/dl (14.0-18.0); Mean Corpuscular Hemoglobin 30.6 pg (25.0-34.0); Mean Corpuscular Hgb Conc 33.1 g/dL (32.0-36.0); Mean Corpuscular Volume 92.7 fL (80.0-100.0); Platelet Count 161 K/uL (130-400); RDW Coefficient of Variation 12.9 % (11.5-14.5); RDW Standard Deviation 43.8 fL (36.4-46.3); Red Blood Count 3.85 M/uL (4.70-6.10)
[2024-02-27 06:56] LABS: Calcium 8.2 mg/dl (8.6-10.3); Creatinine Clr Calc Pharmacy 81.9 ml/min; Est GFR (African American) 90.4 ml/min; Potassium 3.9 mmol/L (3.5-5.1)
--- NOTE | 2024-02-27 07:07 | Electrocardiogram Report ---
Test Reason : Blood Pressure : / mmHG Vent. Rate : 089 BPM Atrial Rate : 089 BPM P-R Int : 142 ms QRS Dur : 094 ms QT Int : 380 ms P-R-T Axes : 073 000 066 degrees QTc Int : 462 ms Sinus rhythm with Premature supraventricular complexes Otherwise normal ECG When compared with ECG of 07-APR-2010 14:43, Premature supraventricular complexes are now Present T wave amplitude has decreased in Anterior leads Confirmed by Jose Faust ([id number]) on 02/27/2024 7:07:04 AM Referred By: REFERRED SELF Confirmed By:Christopher Faust
--- NOTE | 2024-02-27 10:13 | Surgery Progress Note ---
Date of Service February 27, 2024 Assessment & Plan (1) Duodenal mass: Plan: Suspected duodenal mass, would need tissue biopsy. Likely needs endoscopic visualization with FNA or ultrasound-guided biopsy versus IR guided biopsy. Low suspicion for perforation given normal vital signs and white blood cell count. If this is still a concern that would recommend oral contrasted CT to rule out perforation. Any surgical intervention would need to be performed at a tertiary facility with hepatobiliary/oncologic surgery. Admission and Anticipated Discharge Date Admission Date: February 26, 2024 Subjective Admitted with duodenal/pancreatic head mass. Has pain, no nausea vomiting. Physical Exam Constitutional: WD/WN, vitals as above Gastrointestinal (Abdomen): Percussion/Palpation: + abdomen tender (Tender palpation epigastric) and abdomen soft; no guarding Results & Data Vital Signs (Past 12 Hours) Vital Signs Temp Pulse Resp BP Pulse Ox O2 Del Method 02/27/24 07:37 37 C 86 15 114/65 91 Room Air PG Care Time/CCT Total # of Minutes Spent Total Time Spent with Patient: Total time spent is greater than 50% in coordination of care (as documented) at patient's floor/unit and/or counseling patient: Coding Level of Care Code 72412 SUB INP/OBS CARE 2/35MIN Diagnoses Duodenal mass K31.89
[2024-02-27] MEDS: oxyCODONE HCL IR 5 MG TAB (IMMEDIATE RELEASE) PO PRN (11:59)
--- NOTE | 2024-02-27 12:46 | Hospitalist Progress Note ---
Date of Service February 27, 2024 Assessment & Plan (1) Abdominal pain: Plan: Patient presents to the hospital with sudden onset of abdominal pain radiating to the back. Associated constipation of about 3 days duration no nausea or vomiting. Periumbilical tenderness on exam CT scan of abdomen and pelvis showed evidence of an exophytic duodenal mass. Mass was confirmed by MRI abdomen Will need tissue biopsy for sent to pathology for further characterization, this could be done either through EGD or IR GI and general surgery on consult, pressure recommendations CEA within normal limits, CA 19-9 pending Keep n.p.o. for now. Continue empiric IV Zosyn and IV Protonix (2) Duodenal mass: Plan: See #1 above (3) Multiple pulmonary nodules determined by computed tomography of lung: Plan: Patient has a history of multiple pulmonary nodules, followed up by pulmonology with serial CTs (4) Chronic obstructive pulmonary disease: Plan: No wheeze on exam Continue home inhalers (5) History of hypertension: Plan: Blood pressures under good control, in this admission actually soft Will hold antihypertensive medications for now. Plan Admit to [facility] Full code Admission and Anticipated Discharge Date Admission Date: February 26, 2024 Subjective Patient seen and examined, still some abdominal pain but gets better with pain medications. Review of Systems Review of Systems: All systems reviewed are negative, apart from the ones contained in the history. Physical Exam Physical Exam: The patient is awake, alert and oriented 3, well developed and well nourished, normocephalic and atraumatic, lying in bed and in no acute distress. HEENT--PERRL, EOMI, mucous membranes and oropharynx mildly dry Neck--supple. No JVD. No bruits. Thyroid normal, trachea midline, no adenopathy. Heart--normal S1 and S2. No murmurs, rubs or gallops. Lungs--clear bilaterally, no respiratory distress, no accessory muscle use. Abdomen--normal bowel sounds and soft. Mild periumbilical tenderness Extremities--no cyanosis or clubbing. No edema. Dermatologic--normal skin turgor, normal color, no abnormal lymph nodes, no rash. Neurologic--cranial nerves II through XII grossly intact. Rheumatologic--normal range of motion. Psychiatric--normal affect. Results & Data Results & Data Vital Signs (Past 12 Hours) Vital Signs Temp Pulse Resp BP Pulse Ox O2 Del Method 02/27/24 07:37 98.6 F 86 15 114/65 91 Room Air PG Care Time/CCT Total # of Minutes Spent Total Time Spent with Patient: Total time spent is greater than 50% in coordination of care (as documented) at patient's floor/unit and/or counseling patient: Coding Level of Care Code 29452 SUB INP/OBS CARE 2/35MIN Diagnoses Abdominal pain R10.9 Duodenal mass K31.89 Multiple pulmonary nodules determined by computed tomography of lung R91.8 Centrilobular emphysema J43.2 COPD type: emphysema Emphysema type: centrilobular History of hypertension Z86.79 Time Spent (min) 35 (4) Chronic obstructive pulmonary disease COPD type: emphysema Emphysema type: centrilobular Qualified Code(s): J43.2 - Centrilobular emphysema
--- NOTE | 2024-02-27 13:36 | Gastroenterology Progress Note ---
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 The abrupt onset associated with persistent pain and now chills raises question for some version of contained perforation. While D2/3 is an unusual location for PUD, imaging is of course limited at times and he has been taking more NSAIDs of late. His back pain suggests a RP component which would support D2/D3 involvement. (2) Leg wound, left: Plan - recommend IV abx - recommend IV PPI - NPO pending clarity on the process at hand; IV fluids recommended along with pain control - appreciate surgery support and recommendations - plan for CT abd with oral contrast only today - EGD vs IR vs surgical approach to obtain a tissue/direct visual diagnosis anticipated pending the above; tentative plan for EGD 02/28/24 - Ca 19-9 is pending Admission and Anticipated Discharge Date Admission Date: February 26, 2024 Subjective Pain and anti-emetic regimen adjusted last evening with good effect. Still having pain but tolerable w current regimen. Morphine was perhaps exacerbating nausea. Seen by surgery. Review of Systems Review of Systems: All systems reviewed & are unremarkable except as noted in HPI & below Physical Exam Eyes: PERRL, conjunctivae normal, anicteric sclerae Respiratory: normal respiratory effort, lungs clear to auscultation Cardiovascular: RRR, no murmur, no edema Gastrointestinal (Abdomen): periumbilical TTP, NABS, no HSM or palapable masses Skin: LLE with stocking and dressing in place C/D/I Results & Data Results & Data Vital Signs (Past 12 Hours) Vital Signs Temp Pulse Resp BP Pulse Ox O2 Del Method 02/27/24 07:37 37 C 86 15 114/65 91 Room Air Laboratory Results Lab Results 02/26/24 02/26/24 02/26/24 Range/Units 04:20 06:20 15:09 WBC 9.39 (4.8-10.8) K/ul RBC 4.52 L (4.70-6.10) M/uL Hgb 13.9 L (14.0-18.0) g/dl Hct 42.2 (42.0-52.0) % MCV 93.4 (80.0-100.0) fL MCH 30.8 (25.0-34.0) pg MCHC 32.9 (32.0-36.0) g/dL RDW Std Deviation 42.0 (36.4-46.3) fL RDW Coeff of Babak 12.1 (11.5-14.5) % Plt Count 208 (130-400) K/uL MPV 10.3 (9.4-12.4) fL Immature Gran % (Auto) 0.4 % Neut % (Auto) 83.3 % Lymph % (Auto) 13.8 % Braxton % (Auto) 1.1 % Eos % (Auto) 1.2 % Baso % (Auto) 0.2 % Neut # (Auto) 7.82 H (1.40-6.50) K/uL Lymph # (Auto) 1.30 (1.20-3.40) K/uL Braxton # (Auto) 0.10 L (0.11-0.59) K/uL Eos # (Auto) 0.11 (0.00-0.50) K/uL Baso # (Auto) 0.02 (0.00-0.20) K/uL Immature Gran # (Auto) 0.04 (0.01-0.20) K/uL Sodium 138 (136-145) mmol/L Potassium 4.0 (3.5-5.1) mmol/L Chloride 103 (98-107) mmol/L Carbon Dioxide 29 (21-32) mmol/L Anion Gap 6 (3-11) BUN 26 H (6-23) mg/dl Creatinine 0.99 (0.6-1.4) mg/dl Est Cr Clr Drug Dosing 78.2 ml/min Est GFR ( Amer) 86.0 ml/min Est GFR (Non-Af Amer) 74.2 ml/min BUN/Creatinine Ratio 26.3 H (10-20) Glucose 132 H (70-99(Fasting)) mg/dl Calcium 9.1 (8.6-10.3) mg/dl Total Bilirubin 0.5 (0.2-1.0) mg/dl AST 19 (13-39) U/L ALT 21 (7-52) U/L Alkaline Phosphatase 112 H (34-104) U/L Total Protein 7.4 (6.0-8.3) gm/dl Albumin 4.3 (3.4-5.0) gm/dl Globulin 3.1 (2.5-4.0) gm/dl Albumin/Globulin Ratio 1.4 (0.9-2) Lipase 23 (11-82) U/L Carcinoembryonic Ag 0.9 (0-2.5) ng/ml Urine Color Yellow Urine Appearance Clear (Clear) Urine pH 5.0 (4.5-7.5) Ur Specific [place] > 1.045 H (1.000-1.030) Urine Protein Negative (Negative) Urine Glucose (UA) Negative (Negative) Urine Ketones Trace H (Negative) Urine Blood Trace H (Negative) Urine Nitrite Negative (Negative) Urine Bilirubin Negative (Negative) Urine Urobilinogen Negative (Negative) Ur Leukocyte Esterase Negative (Negative) Urine WBC (Auto) 0-5 (0-5) /hpf Urine RBC (Auto) 0-2 (0-2) /hpf U Hyaline Cast (Auto) 0-2 (0-2) /lpf U Epithel Cells (Auto) 0-2 (0-2) /hpf Urine Bacteria (Auto) None Seen (None Seen) 02/27/24 Range/Units 05:48 WBC 12.50 H (4.8-10.8) K/ul RBC 3.85 L (4.70-6.10) M/uL Hgb 11.8 L (14.0-18.0) g/dl Hct 35.7 L (42.0-52.0) % MCV 92.7 (80.0-100.0) fL MCH 30.6 (25.0-34.0) pg MCHC 33.1 (32.0-36.0) g/dL RDW Std Deviation 43.8 (36.4-46.3) fL RDW Coeff of Babak 12.9 (11.5-14.5) % Plt Count 161 (130-400) K/uL MPV 11.0 (9.4-12.4) fL Immature Gran % (Auto) % Neut % (Auto) % Lymph % (Auto) % Braxton % (Auto) % Eos % (Auto) % Baso % (Auto) % Neut # (Auto) (1.40-6.50) K/uL Lymph # (Auto) (1.20-3.40) K/uL Braxton # (Auto) (0.11-0.59) K/uL Eos # (Auto) (0.00-0.50) K/uL Baso # (Auto) (0.00-0.20) K/uL Immature Gran # (Auto) (0.01-0.20) K/uL Sodium 134 L (136-145) mmol/L Potassium 3.9 (3.5-5.1) mmol/L Chloride 103 (98-107) mmol/L Carbon Dioxide 24 (21-32) mmol/L Anion Gap 7 (3-11) BUN 19 (6-23) mg/dl Creatinine 0.95 (0.6-1.4) mg/dl Est Cr Clr Drug Dosing 81.9 ml/min Est GFR ( Amer) 90.4 ml/min Est GFR (Non-Af Amer) 78.0 ml/min BUN/Creatinine Ratio 20.0 (10-20) Glucose 131 H (70-99(Fasting)) mg/dl Calcium 8.2 L (8.6-10.3) mg/dl Total Bilirubin (0.2-1.0) mg/dl AST (13-39) U/L ALT (7-52) U/L Alkaline Phosphatase (34-104) U/L Total Protein (6.0-8.3) gm/dl Albumin (3.4-5.0) gm/dl Globulin (2.5-4.0) gm/dl Albumin/Globulin Ratio (0.9-2) Lipase (11-82) U/L Carcinoembryonic Ag (0-2.5) ng/ml Urine Color Urine Appearance (Clear) Urine pH (4.5-7.5) Ur Specific [place] (1.000-1.030) Urine Protein (Negative) Urine Glucose (UA) (Negative) Urine Ketones (Negative) Urine Blood (Negative) Urine Nitrite (Negative) Urine Bilirubin (Negative) Urine Urobilinogen (Negative) Ur Leukocyte Esterase (Negative) Urine WBC (Auto) (0-5) /hpf Urine RBC (Auto) (0-2) /hpf U Hyaline Cast (Auto) (0-2) /lpf U Epithel Cells (Auto) (0-2) /hpf Urine Bacteria (Auto) (None Seen) PG Care Time/CCT Total # of Minutes Spent Total Time Spent with Patient: Total time spent is greater than 50% in coordination of care (as documented) at patient's floor/unit and/or counseling patient: Coding Level of Care Code 73620 SUB INP/OBS CARE 235MIN Diagnoses Duodenal mass 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
[2024-02-27] MEDS: ONDANSETRON INJ 2 MG/ML 2 ML VIAL IV PRN (14:45)
--- NOTE | 2024-02-27 16:29 | CT Scan Report ---
ABDOMEN AND PELVIS CT WITH ORAL CONTRAST CT DOSE: 1410.48 mGy.cm HISTORY: duodenal mass TECHNIQUE: Multiaxial CT images of the abdomen and pelvis were performed following the use of oral co ntrast. A dose lowering technique was utilized adhering to the principles of ALARA. COMPARISON STUDY: Abdomen and pelvis CTA 02/26/2024. Abdominal MRI 02/26/2024. FINDINGS: Emphysema seen at the lung bases. Right basilar linear densities favor subsegmental atelect asis. Trace bilateral pleural effusions. No acute fractures. Moderate size bilateral fat and bowel co ntaining inguinal hernias. The unenhanced liver, spleen, and adrenal glands are unremarkable. No jean marie l stones or hydronephrosis. Mild bilateral perinephric edema is noted. The gallbladder is mildly dist ended, unchanged. However, no gallbladder wall thickening. Normal caliber common bile duct. Calcified plaque within the normal caliber abdominal aorta. No retroperitoneal or pelvic lymphadenopathy. The bladder is unremarkable. The prostate gland is mildly enlarged. Colonic diverticulosis again noted. N o evidence for bowel obstruction. Normal appendix. There is thickening of the second and third portio n of the duodenum with surrounding fat stranding. There is also trace fluid and fat stranding along t he right anterior perirenal space and retroperitoneal space which has slightly progressed in the inte rval. This is likely reactive to the gas and fluid collection within/adjacent to the second and third portion of the duodenum. This gas/fluid collection measures approximately 7.3 x 5.7 cm and is simila r to the prior study. This contains a few hyperdense foci which does not clearly represent intralumin al contrast as this was present on the prior study. There are few small diverticula at the second and third portion of the duodenum. Therefore, these findings likely represent a contained perforation/ab scess at the duodenum possibly secondary from a duodenal ulcer or perforation of one of the duodenal diverticula in the setting of an acute diverticulitis. An underlying duodenal mass would be difficult to exclude but not clearly identified on this study. IMPRESSION: 1. Redemonstration of the 7.3 x 5.7 cm loculated gas and fluid collection within/adjacent to the duod enum. This is similar to the prior study. There are few small diverticulum at the second and third po rtion of the duodenum. Therefore, these findings likely represent a contained perforation/abscess at the duodenum possibly secondary from a duodenal ulcer or perforation of one of the duodenal diverticu la in the setting of a diverticulitis. An underlying duodenal mass would be difficult to exclude but not clearly identified on this study. Therefore, urgent surgical consultation recommended. 2. Small hyperdense foci within the suspected contained perforation/abscess are similar to prior stud y and do not clearly represent oral contrast. 3. No evidence for bowel obstruction. 4. Trace bilateral pleural effusions. 5. Moderate-sized bilateral inguinal hernias containing bowel and fat. There are 6. Additional findin gs as described above. 6. This report was called/faxed to the referring physician following dictation. ACT 112: Negative or not required by law. Electronically signed by: Isaiah Nguyen M.D. 02/27/2024 4:26 PM
[2024-02-27] MEDS: PROMETHAZINE HCL 12.5 MG in SODIUM CHLORIDE 0.9% 50 ML IV PRN (16:50)
--- NOTE | 2024-02-27 17:13 | Communication Note ---
Date of Service: February 27, 2024 CT w/ oral and iv contrast reviewed. NO extravasation, but interpreting radiologist felt more likely contained perforation. 3 different scans w/ varying degree of certainty as to whether mass vs contained perforation/abscess. Will review films with rads tomorrow as patient is stable, may be able to sample with rads, but will likely need transfer to tertiary center for further eval and treatment.
[2024-02-27] MEDS: ALBUTEROL HFA 8 GM INHALER INH PRN (22:21)
[2024-02-28 07:15] LABS: Hematocrit (blood only) 37.4 % (42.0-52.0); Hemoglobin 12.2 g/dl (14.0-18.0); Mean Corpuscular Hemoglobin 31.1 pg (25.0-34.0); Mean Corpuscular Hgb Conc 32.6 g/dL (32.0-36.0); Mean Corpuscular Volume 95.4 fL (80.0-100.0); Mean Platelet Volume 10.8 fL (9.4-12.4); Platelet Count 151 K/uL (130-400); RDW Standard Deviation 45.7 fL (36.4-46.3); Red Blood Count 3.92 M/uL (4.70-6.10); White Blood Count 11.59 K/ul (4.8-10.8)
[2024-02-28 07:28] LABS: BUN Creatinine Ratio 17.1 (10-20); Calcium 8.3 mg/dl (8.6-10.3); Creatinine Clr Calc Pharmacy 94.9 ml/min; Est GFR (African American) 100.3 ml/min; Est GFR (Non-African American) 86.5 ml/min
--- NOTE | 2024-02-28 11:02 | Hospitalist Progress Note ---
Date of Service February 28, 2024 Assessment & Plan (1) Abdominal pain: Plan: Patient presented to the hospital with sudden onset of abdominal pain radiating to the back. Periumbilical tenderness on exam CT scan of abdomen and pelvis done on admission showed evidence of an exophytic duodenal mass. Mass was confirmed by MRI abdomen However, a repeat CT abdomen with oral contrast done on 02/27/2024 Suggest 7.3 x 5.7 cm loculated gas and fluid collection in the adjacent duodenum, likely represent a contained perforation/abscess, possibly from his duodenal ulcer or perforation of the duodenal diverticula. Duodenal mass will be difficult to exclude but not clearly identified on this study. General Surgery and GI on consult. Per general surgery, will need to review the images closely with the radiologist. And if surgery is indicated, patient may need to be transferred out to a tertiary institution. Await further recommendations from GI and surgery. CEA within normal limits, CA 19-9 pending Keep n.p.o. for now. Continue empiric IV Zosyn and IV Protonix (2) Duodenal mass: Plan: See #1 above (3) Multiple pulmonary nodules determined by computed tomography of lung: Plan: Patient has a history of multiple pulmonary nodules, followed up by pulmonology with serial CTs (4) Chronic obstructive pulmonary disease: Plan: No wheeze on exam Continue home inhalers (5) History of hypertension: Plan: Blood pressures under good control, in this admission actually soft Will hold antihypertensive medications for now. Plan Admit to [facility], Continue to monitor. I updated the patient's and also the daughter who is a nurse Full code Admission and Anticipated Discharge Date Admission Date: February 26, 2024 Subjective Patient seen and examined, has some abdominal pain, but denies fevers or chills. Review of Systems Review of Systems: All systems reviewed are negative, apart from the ones contained in the history. Physical Exam Physical Exam: The patient is awake, alert and oriented 3, well developed and well nourished, normocephalic and atraumatic, lying in bed and in no acute distress. HEENT--PERRL, EOMI, mucous membranes and oropharynx mildly dry Neck--supple. No JVD. No bruits. Thyroid normal, trachea midline, no ad enopathy. Heart--normal S1 and S2. No murmurs, rubs or gallops. Lungs--clear bilaterally, no respiratory distress, no accessory muscle use. Abdomen--normal bowel sounds and soft. Mild periumbilical tenderness Extremities--no cyanosis or clubbing. No edema. Dermatologic--normal skin turgor, normal color, no abnormal lymph nodes, no rash. Neurologic--cranial nerves II through XII grossly intact. Rheumatologic--normal range of motion. Psychiatric--normal affect. 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
--- NOTE | 2024-02-28 11:21 | Gastroenterology Progress Note ---
Date of Service February 28, 2024 Assessment & Plan (1) Abdominal pain, acute, periumbilical: Plan: 73 year old male with history of COPD, pulmonary nodules admitted with abd pain, imaging concerning for a 7.3 x 5.7 cm loculated gas and fluid collection within/adjacent to the duodenum raining the concern for a contained perforation/abscess at the duodenum EGD this AM is cancelled Appreciate surgical evaluation Maintain NPO status IV PPI bolus/drip Recall GI as needed I spent a total of 35 minutes on the date of service in review of patient's record, and previously obtained information in person and appropriate medical visit, discussion and education of plan, with patient and/or caregiver, placing orders for tests/referral/procedures as medically necessary and documentation of pertinent clinical information in patient's medical records for their visit today. Admission and Anticipated Discharge Date Admission Date: February 26, 2024 Supervising Physician Co-Signing Physician Notes I personally saw and examined the patient. I have reviewed the chart and agree with the documentation provided by the [employer] including discussion about the assessment, treatment and plan. Briefly, 73 year old male with history of COPD, pulmonary nodules admitted with acute severe abd pain and back pain, imaging concerning for a 7.3 x 5.7 cm loculated gas and fluid collection within/adjacent to the duodenum raining the concern for a contained perforation/abscess at the duodenum. Now improved with pain on meds. abdominal exam is non surgical. Did take "anti-inflammatory" for weeks for lef pain. Suspect Duodenal ulceration with contained perf. Transfer to [facility] and consider gastrograffin vs barium UGIS. Subjective Pt was seen and evaluated, chart reviewed. Was NPO for tentative EGD today. In the interim, CT returned w/ 7.3 x 5.7 cm loculated gas and fluid collection within/adjacent to the duodenum concerning for a contained perforation/abscess at the duodenum possibly secondary from a duodenal ulcer EGD cancelled. Review of Systems Review of Systems: All other findings negative except as noted in HPI. Physical Exam Constitutional: WD/WN, vitals as above Respiratory: normal respiratory effort, lungs clear to auscultation Cardiovascular: Rate/Rhythm: regular rate Gastrointestinal (Abdomen): Inspection/Auscultation: normal bowel sounds Percussion/Palpation: + abdomen tender and abdomen soft; no guarding and abdomen not rigid Skin: no rashes, warm and dry Results & Data Results & Data Vital Signs (Past 12 Hours) Vital Signs Temp Pulse Resp BP Pulse Ox O2 Del Method O2 Flow Rate 02/28/24 08:33 101 H 16 120/69 93 Nasal Cannula, CPAP 1 02/28/24 08:30 Nasal Cannula 1 02/28/24 08:00 37.2 C 112 H 17 159/81 H 88 L Nasal Cannula Laboratory Results 02/28/24 Range/Units 06:39 WBC 11.59 H (4.8-10.8) K/ul RBC 3.92 L (4.70-6.10) M/uL Hgb 12.2 L (14.0-18.0) g/dl Hct 37.4 L (42.0-52.0) % MCV 95.4 (80.0-100.0) fL MCH 31.1 (25.0-34.0) pg MCHC 32.6 (32.0-36.0) g/dL RDW Std Deviation 45.7 (36.4-46.3) fL RDW Coeff of Babak 13.0 (11.5-14.5) % Plt Count 151 (130-400) K/uL MPV 10.8 (9.4-12.4) fL Sodium 132 L (136-145) mmol/L Potassium 4.0 (3.5-5.1) mmol/L Chloride 102 (98-107) mmol/L Carbon Dioxide 25 (21-32) mmol/L Anion Gap 5 (3-11) BUN 14 (6-23) mg/dl Creatinine 0.82 (0.6-1.4) mg/dl Est Cr Clr Drug Dosing 94.9 ml/min Est GFR ( Amer) 100.3 ml/min Est GFR (Non-Af Amer) 86.5 ml/min BUN/Creatinine Ratio 17.1 (10-20) Glucose 113 H (70-99(Fasting)) mg/dl Calcium 8.3 L (8.6-10.3) mg/dl PG Care Time/CCT Total # of Minutes Spent Total Time Spent with Patient: Total time spent is greater than 50% in coordination of care (as documented) at patient's floor/unit and/or counseling patient: Coding Level of Care Code 76142 SUB INP/OBS CARE 2/35MIN Diagnoses Abdominal pain, acute, periumbilical R10.33
[2024-02-28] MEDS: COLLAGENASE OINT 30 GM TUBE EXT SCH (11:56)
--- NOTE | 2024-02-28 12:33 | Surgery Progress Note ---
Date of Service February 28, 2024 Assessment & Plan (1) Duodenal perforation: Plan: Contained duodenal perforation of the medial second portion of the duodenum. This is not amenable to percutaneous drainage at this facility. Patient will need evaluation at a tertiary center for further management. Recommend transfer to tertiary facility for further evaluation Continue antibiotics, PPI Admission and Anticipated Discharge Date Admission Date: February 26, 2024 Subjective Still with back pain, otherwise no issues Physical Exam Constitutional: WD/WN, vitals as above Respiratory: normal respiratory effort, lungs clear to auscultation Cardiovascular: RRR, no murmur, no edema Gastrointestinal (Abdomen): Percussion/Palpation: + abdomen tender (Epigastric) and abdomen soft; no guarding and abdomen not rigid Results & Data Vital Signs (Past 12 Hours) Vital Signs Temp Pulse Resp BP Pulse Ox O2 Del Method O2 Flow Rate 02/28/24 08:33 101 H 16 120/69 93 Nasal Cannula, CPAP 1 02/28/24 08:30 Nasal Cannula 1 02/28/24 08:00 37.2 C 112 H 17 159/81 H 88 L Nasal Cannula Diagnostic Findings Personally reviewed and interpreted the most recent CT scan, reviewed CT and MRI imaging with radiology. This does not appear to represent a contained perforation of the medial portion of the second segment of the duodenum close to the ampulla. Abdomen/Pelvis CT 02/27/24 13:[address] WITH ORAL CONTRAST CT DOSE: 1410.48 mGy.cm HISTORY: duodenal mass TECHNIQUE: Multiaxial CT images of the abdomen and pelvis were performed following the use of oral contrast. A dose lowering technique was utilized adhering to the principles of ALARA. COMPARISON STUDY: Abdomen and pelvis CTA 02/26/2024. Abdominal MRI 02/26/2024. FINDINGS: Emphysema seen at the lung bases. Right basilar linear densities favor subsegmental atelectasis. Trace bilateral pleural effusions. No acute fractures. Moderate size bilateral fat and bowel containing inguinal hernias. The unenhanced liver, spleen, and adrenal glands are unremarkable. No renal stones or hydronephrosis. Mild bilateral perinephric edema is noted. The gallbladder is mildly distended, unchanged. However, no gallbladder wall thickening. Normal caliber common bile duct. Calcified plaque within the normal caliber abdominal aorta. No retroperitoneal or pelvic lymphadenopathy. The bladder is unrema rkable. The prostate gland is mildly enlarged. Colonic diverticulosis again noted. No evidence for bowel obstruction. Normal appendix. There is thickening of the second and third portion of the duodenum with surrounding fat stranding. There is also trace fluid and fat stranding along the right anterior perirenal space and retroperitoneal space which has slightly progressed in the interval. This is likely reactive to the gas and fluid collection within/adjacent to the second and third portion of the duodenum. This gas/fluid collection measures approximately 7.3 x 5.7 cm and is similar to the prior study. This contains a few hyperdense foci which does not clearly represent intraluminal contrast as this was present on the prior study. There are few small diverticula at the second and third portion of the duodenum. Therefore, these findings likely represent a contained perforation/abscess at the duodenum possibly secondary from a duodenal ulcer or perforation of one of the duodenal diverticula in the setting of an acute diverticulitis. An underlying duodenal mass would be difficult to exclude but not clearly identified on this study. IMPRESSION: 1. Redemonstration of the 7.3 x 5.7 cm loculated gas and fluid collection within/adjacent to the duodenum. This is similar to the prior study. There are few small diverticulum at the second and third portion of the duodenum. Therefore, these findings likely represent a contained perforation/abscess at the duodenum possibly secondary from a duodenal ulcer or perforation of one of the duodenal diverticula in the setting of a diverticulitis. An underlying duodenal mass would be difficult to exclude but not clearly identified on this study. Therefore, urgent surgical consultation recommended. 2. Small hyperdense foci within the suspected contained perforation/abscess are similar to prior study and do not clearly represent oral contrast. 3. No evidence for bowel obstruction. 4. Trace bilateral pleural effusions. 5. Moderate-sized bilateral inguinal hernias containing bowel and fat. There are 6. Additional findings as described above. 6. This report was called/faxed to the referring physician following dictation. ACT 112: Negative or not required by law. Electronically signed by: Isaiah Nguyen M.D. 02/27/2024 4:26 PM PG Care Time/CCT Total # of Minutes Spent Total Time Spent with Patient: Total time spent is greater than 50% in coordination of care (as documented) at patient's floor/unit and/or counseling patient: Coding Level of Care Code 76723 SUB INP/OBS CARE 2/35MIN Diagnoses Duodenal perforation K63.1
[2024-02-28 15:01] VITALS: RESP 18
--- NOTE | 2024-02-28 15:23 | Discharge Summary ---
Date of Service February 28, 2024 Admission HPI Per Admitting Provider This is a 73-year-old male with a history of COPD, multiple pulmonary nodules, followed by pulmonology, who presents to the hospital today with complaints of abdominal pain. According to the patient he was sitting up watching the [place] on the TV around 11 PM when he developed sudden onset of abdominal pain which radiated to the back. He thought he was going to go away and then went to bed however he could not sleep and the pain got worse so he woke up his and then decided to come to the hospital for further investigation. A week prior he had been to the emergency department with cellulitis where he was discharged and prescribed antibiotics. He initially attributed the pain to the antibiotics and abdominal discomfort and constipation with antibiotics however. Here in the emergency department basic labs were done CBC and BMP which were essentially within normal limits a CT abdomen and pelvis was done which showed evidence of an exophytic necrotic mass extending from the duodenum. Patient will be admitted to the hospital for further investigation and further management. Admission Exam (Per Admitting) Constitutional The patient is awake, alert and oriented 3, well developed and well nourished, normocephalic and atraumatic, lying in bed and in no acute distress. HEENT--PERRL, EOMI, mucous membranes and oropharynx mildly dry Neck--supple. No JVD. No bruits. Thyroid normal, trachea midline, no adenopathy. Heart--normal S1 and S2. No murmurs, rubs or gallops. Lungs--clear bilaterally, no respiratory distress, no accessory muscle use. Abdomen--normal bowel sounds and soft. Extremities--no cyanosis or clubbing. No edema. Dermatologic--normal skin turgor, normal color, no abnormal lymph nodes, no rash. Neurologic--cranial nerves II through XII grossly intact. Rheumatologic--normal range of motion. Psychiatric--normal affect. Discharge Data Consultations 02/26/24 08:17 ED Decision to Admit Stat 02/26/24 11:18 Consult Gastroenterology Routine 02/26/24 14:56 Consult General Surgery Routine Hospital Course (1) Abdominal pain: Patient presented to the hospital with sudden onset of abdominal pain radiating to the back. Periumbilical tenderness on exam CT scan of abdomen and pelvis done on admission showed evidence of an exophytic duodenal mass. Mass was confirmed by MRI abdomen However, a repeat CT abdomen with oral contrast done on 02/27/2024 Suggest 7.3 x 5.7 cm loculated gas and fluid collection in the adjacent duodenum, likely represent a contained perforation/abscess, possibly from his duodenal ulcer or perforation of the duodenal diverticula. Duodenal mass will be difficult to exclude but not clearly identified on this study. General Surgery and GI on consult. Per general surgery, will need to review the images closely with the radiologist. And if surgery is indicated, patient may need to be transferred out to a tertiary institution. Await further recommendations from GI and surgery. CEA within normal limits, CA 19-9 pending Keep n.p.o. for now. Continue empiric IV Zosyn and IV Protonix Has been accepted at [facility] (2) Duodenal mass: See #1 above (3) Multiple pulmonary nodules determined by computed tomography of lung: Patient has a history of multiple pulmonary nodules, followed up by pulmonology with serial CTs (4) Chronic obstructive pulmonary disease: No wheeze on exam Continue home inhalers (5) History of hypertension: Blood pressures under good control, in this admission actually soft Will hold antihypertensive medications for now. Plan Has been accepted out at [facility] Full code Coding Level of Care Code 67676 INP/OBS DISCH >30 MIN Diagnoses Abdominal pain R10.9 Duodenal mass K31.89 Multiple pulmonary nodules determined by computed tomography of lung R91.8 Centrilobular emphysema J43.2 COPD type: emphysema Emphysema type: centrilobular History of hypertension Z86.79 Time Spent (min) 35
[2024-02-28 15:51] VITALS: BP 154/91; PULSE 93; TEMP 97.9; O2SAT 93
== END 2024-02-28 16:43 | disposition short-term general hospital (02) | DRG 380 ==
LOC: ED 03:49 → 3W 08:33

== ENCOUNTER 2024-03-07 15:31 | Inpatient (IN) ==
--- NOTE | 2024-03-08 01:12 | History & Physical Report ---
Date of Service March 08, 2024 Assessment & Plan (1) Duodenal perforation: Plan: Pt is a 73 yo male with PMH of COPD and HTN presenting to the hospital via direct admission from [facility]. He was hospitalized at [facility] 02/25-02/27 at which point he was transferred to [facility]. He had interventions to repair his duodenal ulcer/perf and gallstone stone removed. He now returns for further medical management. Duodenal perforation w/ gallstone/abscess s/p EGD and lithotripsy - s/p empiric ABX and antifungals x5 days; he continues on augmentin BID until 03/16 (14 day course) - no PPI d/t necrosis - f/u CTAP with IV contrast in 4-6 weeks for reassessment - keep NPO with NJ tube but able to take meds by mouth with water sips; plan for 4-6 weeks of NJ tube; pt will need outpatient [facility] f/u Tube feeds - pt tolerated continuous feeds well up to 75 mL/hr; a bolus feeding was then attempted which pt did not tolerate (abdominal pain and diarrhea) - per nutrition consult at [facility]; avoid bolus feeds, continue with Isosource 1.5 w/ beneprotein 1 packet per can of feeding, goal of 75mL/hr for continuous feeds or 125mL/hr x12hrs for cycled feeds - on admission, D5/NS started at 100mL/hr until AM; nutrition consulted to begin tube feeds- would recommend starting continuos feeds at 45 mL/hr and uptitrate as able to goal of 75mL/hr - as above, all meds should be taken PO - monitor electrolytes, BS Diarrhea - secondary to tube feeds and antibiotics - Imodium PRN Hypertension - continue valsartan 320 mg PO daily and HCTZ 12.5 mg PO daily COPD - continue home Trelegy; pt requesting to use his own home inhaler rather than formulary equivalent as this did not work for him in [place] Diet: NPO (tube feeds); ok for sips with meds Code: full DVT ppx: low risk; defer chemoppx on admission; would consider addition if stay prolonged Dispo: admit to med/surg (2) Chronic obstructive pulmonary disease: (3) On tube feeding diet: (4) Diarrhea: (5) Hypertension: Admission and Anticipated Discharge Date Admission Date: March 08, 2024 History of Present Illness Chief Complaint: direct admit- [facility] Primary Care Provider: Ze Reddy MD Pt is a 73 yo male with PMH of COPD and HTN presenting to the hospital via direct admission from [facility]. Pt was hospitalized at [facility] 02/25-02/27 at which point he was transferred to [facility] for surgical intervention of possible necrotic mass vs. contained perforation of a duodenal diverticula. At [facility], it was determined that the pt most likely had a duodenal ulcer w/ microperforation. Pt had an EGD 03/02 which showed a large area of necrosis of the pt's duodenum w/ a 4 cm stone which was destroyed with lithotripsy. GI planned to intervene with a duodenal stent but, per pt, this would not stay in place. He did have an NJ tube placed for nutrition. On arrival to [facility], pt is doing well. He has no complaints of pain- he has not had any pain since the surgery. He does note he is still having diarrhea (which started after being given a bolus tube feed) but the diarrhea has much improved. He has no other concerns upon admission. Allergies Allergy/AdvReac Type Severity Reaction Status Date / Time Sulfa (Sulfonamide Allergy Unknown Verified 02/23/24 09:06 Antibiotics) Home Medications Medication Instructions Recorded Confirmed Type multivitamin (Daily Multi-Vitamin 1 tab PO DAILY 04/13/19 02/26/24 History tablet) valsartan 320 mg tablet 320 mg PO DAILY 04/13/19 02/26/24 History coenzyme Q10 [Vitaline CoQ10] 1 tab PO DIRECTED 10/30/22 02/26/24 History hydrochlorothiazide 25 mg tablet 12.5 mg PO DAILY 10/30/22 02/26/24 History red yeast rice 600 mg capsule 1,200 mg PO DAILY 10/30/22 02/26/24 History fluticasone fur. 100 mcg-umeclid 1 inh inhalation DAILY #60 ea 01/29/23 02/26/24 Rx 62.5 mcg-vilant 25 mcg inhalat.powder (Trelegy Ellipta) albuterol sulfate 90 mcg/actuation 2 inh inhalation UD PRN Other 02/23/24 02/26/24 History aerosol inhaler (Ventolin HFA) Past Med/Surg History Problem List (Updated 03/08/24 @ 02:26 by Leyla Cornejo DO) Hypertension Diarrhea On tube feeding diet Duodenal perforation Low back pain (Acute) Abdominal pain, acute, periumbilical (Acute) Duodenal mass (Acute) Bilateral inguinal hernia Duodenal mass Abdominal pain Hematoma of left lower leg (Acute) Leg wound, left Multiple pulmonary nodules determined by computed tomography of lung Solitary pulmonary nodule Lung nodule History of tobacco abuse Chronic obstructive pulmonary disease Pulmonary emphysema Medical History Personal history of nicotine dependence History of hypertension Surgical History History of ankle surgery Family History Unknown Cerebral aneurysm COPD (chronic obstructive pulmonary disease) Social History Smoking Status: Former smoker Tobacco Type: Cigarettes Age Started Using Tobacco: 12; Age Quit Using Tobacco: 67; packs per day: 2; Cigarettes Per Day: 40; Second Hand Exposure: No; Do You Dip or Chew Tobacco: No; Tobacco Cessation Education Requested by Patient: No Hx Alcohol Use: Yes Alcohol type: beer Alcohol Intake Frequency: Monthly or Less Hx Substance Use: No Preferred Language: Uzbek Communication Ability: Effective Visual Impairment: Limited Hearing Ability: Normal Filler Feeder Required: No Beliefs That Will Affect Care: None marital status: Current Living Situation: Spouse current occupational status: retired Other Information That Helps Us Care for You: No Feels Safe at Home: Yes Safety Concerns: Feels Safe At This Time Diet: regular caffeine: Yes Assistive Devices: Glasses Review of Systems Review of Systems: As per HPI Physical Exam Constitutional: NAD, vitals WNL. Eyes: Conjunctivae normal. NJ tube in place and resecured by nursing. Respiratory: CTA bilaterally. Non labored breathing. No rhonchi, wheezing, or crackles. Cardiovascular: RRR. No murmurs noted. No LE edema. Gastrointestinal (Abdomen): Nontender, +BS. No masses noted. Skin: No rashes or skin lesions noted. Noted bandage applied to LLE. Neurologic: Sensation grossly intact. No FND appreciated. Psychiatric: Speech of normal pace and content. Mood and affect congruent. Supervising Physician Co-Signing Physician Notes Attending addendum: I have physically seen this patient, have supervised the medical residents activities, and agree with the H&P unless as otherwise noted. Assessment and Plan: Duodenal ulcer with perforation/gallstone removal status post EGD and lithotripsy [facility]. Continue twice daily until 03/16 N.p.o. Continue NJ tube feeds, with consult to nutrition PPI manage due to necrosis Consult nutrition regarding tube feeds or substitute Hypertension- Continue losartan and HCTZ, monitoring daily electrolytes and renal function Diarrhea- Associated tube feeds and antibiotics Imodium as needed has worked COPD- Continue Trelegy Resident Activity Tracking Resident Involvement: Resident Care Provided Care Provided: Adult Hospital Medicine (2) Chronic obstructive pulmonary disease COPD type: emphysema Emphysema type: centrilobular Qualified Code(s): J43.2 - Centrilobular emphysema
[2024-03-08] MEDS ORDERED: ONDANSETRON INJ 2 MG/ML 2 ML VIAL IV PRN (01:54)
[2024-03-08] MEDS ORDERED: ACETAMINOPHEN 325 MG TAB PO PRN (01:54)
[2024-03-08] MEDS ORDERED: MELATONIN 3 MG TAB PO PRN (01:54)
[2024-03-08] MEDS: D5W AND NSS 1,000 ML IV SCH (03:00)
[2024-03-08] MEDS ORDERED: DEXTROSE 50% 50 ML SYRINGE IV PRN (03:06)
[2024-03-08] MEDS ORDERED: GLUCAGON FOR INJ 1 MG VIAL SQ PRN (03:06)
[2024-03-08] MEDS: hydroCHLOROthiazide 25 MG TAB PO SCH (07:34)
[2024-03-08] MEDS: VALSARTAN 80 MG TAB PO SCH (07:35)
[2024-03-08] MEDS: AMOXICILLIN/CLAVULANATE 875 MG TAB PO SCH (07:35)
[2024-03-08] MEDS: FLUTICASONE/UMECLIDIN/VILANTER 100-62.5-25 INH SCH (07:35)
[2024-03-08 08:08] LABS: Hematocrit (blood only) 38.5 % (42.0-52.0); Hemoglobin 12.7 g/dl (14.0-18.0); Mean Corpuscular Hemoglobin 30.3 pg (25.0-34.0); Mean Corpuscular Volume 91.9 fL (80.0-100.0); Mean Platelet Volume 10.4 fL (9.4-12.4); Platelet Count 266 K/uL (130-400); RDW Coefficient of Variation 13.2 % (11.5-14.5); RDW Standard Deviation 44.4 fL (36.4-46.3); Red Blood Count 4.19 M/uL (4.70-6.10); White Blood Count 5.78 K/ul (4.8-10.8)
[2024-03-08 08:27] LABS: BUN Creatinine Ratio 19.6 (10-20); Calcium 8.9 mg/dl (8.6-10.3); Creatinine Clr Calc Pharmacy 82.9 ml/min; Est GFR (Non-African American) 81.1 ml/min; Phosphorus 3.2 mg/dl (2.5-4.9); Potassium 3.9 mmol/L (3.5-5.1)
[2024-03-08] MEDS ORDERED: UMECLIDINIUM/VILANTEROL 62.5/25MCG 7 PUFFS/INHALER INH SCH (09:00)
[2024-03-08] MEDS ORDERED: FLUTICASONE FUROATE 100MCG 14 PUFFS/INHALER INH SCH (09:00)
[2024-03-08] MEDS: TUBE FEEDING WATER FLUSH JT SCH (13:15)
--- NOTE | 2024-03-08 16:02 | Hospitalist Progress Note ---
Date of Service March 08, 2024 Assessment & Plan (1) Duodenal perforation: Plan: Pt is a 73 yo male with PMH of COPD and HTN presenting to the hospital via direct admission from [facility]. He was hospitalized at [facility] 02/25-02/27 at which point he was transferred to [facility]. He had interventions to repair his duodenal ulcer/perf and gallstone stone removed. He now returns for further medical management. Duodenal perforation w/ gallstone/abscess s/p EGD and lithotripsy - s/p empiric ABX and antifungals x5 days; he continues on augmentin BID until 03/16 (14 day course) - no PPI d/t necrosis - f/u CTAP with IV contrast in 4-6 weeks for reassessment - keep NPO with NJ tube but able to take meds by mouth with water sips; plan for 4-6 weeks of NJ tube; pt will need outpatient [facility] f/u Tube feeds - pt tolerated continuous feeds well up to 75 mL/hr; a bolus feeding was then attempted which pt did not tolerate (abdominal pain and diarrhea) - per nutrition consult at [facility]; avoid bolus feeds, continue with Isosource 1.5 w/ beneprotein 1 packet per can of feeding, goal of 75mL/hr for continuous feeds or 125mL/hr x12hrs for cycled feeds - on admission, D5/NS started at 100mL/hr until AM; would recommend starting continuos feeds at 45 mL/hr and uptitrate as able to goal of 75mL/hr - nutrition to titrate feeds to max tolerated rate - as above, all meds should be taken PO - monitor electrolytes, BS Diarrhea - secondary to tube feeds and antibiotics - Imodium PRN Hypertension - continue valsartan 320 mg PO daily and HCTZ 12.5 mg PO daily COPD - continue home Trelegy; pt requesting to use his own home inhaler rather than formulary equivalent as this did not work for him in [place] Diet: NPO (tube feeds); ok for sips with meds Code: full DVT ppx: low risk; defer chemoppx on admission; would consider addition if stay prolonged Dispo: admit to med/surg (2) Chronic obstructive pulmonary disease: (3) On tube feeding diet: (4) Diarrhea: (5) Hypertension: Admission and Anticipated Discharge Date Admission Date: March 08, 2024 Supervising Physician Co-Signing Physician Notes I personally examined the patient and verified all nation points of history and exam, discussed case, and agree with decision making with Dr Sahu Feeling well. Would like to go home as soon as things are arranged. Extensive discussion with patient, discussion with nutrition, discussion with case management. Coordinated all involved. Tube feeding to be titrated to a goal of 95 an hourwhich would put him at his 24-hour calorie goals with about 18 hours of feed time, and allow him 6 hours off. Nutrition notes that often with NG tube it is hard to have tolerance at a rate higher than this, and given the short duration that he will need to be on the tube feeds, he is okay with this being the plan overall if we cannot get to a faster rate tolerably. Otherwise as above. Subjective Patient seen and evaluated at bedside this morning. No acute events overnight. Feeling overall well this morning. NJ in place. States still having loose stools but now able to make it to bathroom. Review of Systems Review of Systems: reviewed, per HPI Physical Exam Physical Exam: Constitutional: well-appearing, no acute distress HEENT: NCAT, no conjunctival injection, NJ in place CV: well perfused Resp: no increased WOB GI: non-distended MSK: no gross deformities appreciated Skin: warm, dry, no rash appreciated Neuro: alert, oriented, no focal neurologic deficit appreciated Results & Data Results & Data Vital Signs (Past 12 Hours) Vital Signs Temp Pulse Resp BP Pulse Ox O2 Del Method 03/08/24 15:02 36.5 C 77 16 112/73 94 Room Air 03/08/24 11:58 36.3 C L 80 16 120/70 93 Room Air 03/08/24 08:07 36.6 C 70 18 112/78 94 Room Air 03/08/24 07:18 36.8 C 74 16 120/74 92 Room Air Resident Activity Tracking Resident Involvement: Resident Care Provided Care Provided: Adult Hospital Medicine (2) Chronic obstructive pulmonary disease COPD type: emphysema Emphysema type: centrilobular Qualified Code(s): J43.2 - Centrilobular emphysema
--- NOTE | 2024-03-08 19:00 | Billing Data ---
Date of Service March 08, 2024 Coding Level of Care Code 50965 INT INP/OBS CARE
[2024-03-08] MEDS: PEPTAMEN 1.5 CAL 1,000 ML BAG JT SCH (20:36)
[2024-03-09 06:57] LABS: Hematocrit (blood only) 38.9 % (42.0-52.0); Hemoglobin 12.7 g/dl (14.0-18.0); Mean Corpuscular Hemoglobin 30.2 pg (25.0-34.0); Mean Corpuscular Hgb Conc 32.6 g/dL (32.0-36.0); Mean Corpuscular Volume 92.6 fL (80.0-100.0); Mean Platelet Volume 10.9 fL (9.4-12.4); Platelet Count 313 K/uL (130-400); RDW Coefficient of Variation 13.2 % (11.5-14.5); RDW Standard Deviation 45.1 fL (36.4-46.3); White Blood Count 6.27 K/ul (4.8-10.8)
[2024-03-09 08:07] LABS: Calcium 8.9 mg/dl (8.6-10.3); Potassium 4.1 mmol/L (3.5-5.1)
[2024-03-09 08:13] LABS: Creatinine Clr Calc Pharmacy 76.3 ml/min; Est GFR (Non-African American) 73.3 ml/min; Phosphorus 3.2 mg/dl (2.5-4.9)
--- NOTE | 2024-03-09 15:47 | Hospitalist Progress Note ---
Date of Service March 09, 2024 Assessment & Plan (1) Duodenal perforation: Plan: Pt is a 73 yo male with PMH of COPD and HTN presenting to the hospital via direct admission from [facility]. He was hospitalized at [facility] 02/25-02/27 at which point he was transferred to [facility]. He had interventions to repair his duodenal ulcer/perf and gallstone stone removed. He now returns for further medical management. Duodenal perforation w/ gallstone/abscess s/p EGD and lithotripsy - s/p empiric ABX and antifungals x5 days; he continues on augmentin BID until 03/16 (14 day course) - no PPI d/t necrosis - f/u CTAP with IV contrast in 4-6 weeks for reassessment - keep NPO with NJ tube but able to take meds by mouth with water sips; plan for 4-6 weeks of NJ tube; pt will need outpatient [facility] f/u Tube feeds - tolerating feeds at 95ml/hr - as above, all meds should be taken PO - monitor electrolytes, BS Diarrhea - secondary to tube feeds and antibiotics - Imodium PRN Hypertension - continue valsartan 320 mg PO daily and HCTZ 12.5 mg PO daily COPD - continue home Trelegy; pt requesting to use his own home inhaler rather than formulary equivalent as this did not work for him in [place] Diet: NPO (tube feeds); ok for sips with meds Code: full DVT ppx: low risk; defer chemoppx on admission; would consider addition if stay prolonged Dispo: admit to med/surg (2) Chronic obstructive pulmonary disease: (3) On tube feeding diet: (4) Diarrhea: (5) Hypertension: Admission and Anticipated Discharge Date Admission Date: March 08, 2024 Supervising Physician Co-Signing Physician Notes I personally examined the patient and verified all nation points of history and exam, discussed case, and agree with decision making with Dr Sahu Feeling well. some diarrhea, but does not feel like it is excessive, and actually his belly feels better after having had a large bowel movement early this morning. Extensive discussions on what to watch for as far as tube feed tolerance and malabsorption. Was hoping to be able to get him home today, in the end it will be able to be set up for tomorrow. Vitals noted, in general he is awake and alert pleasant no distress. NJ tube without any local breakdown. Breathing unlabored no accessory muscle use good effort. Skin without rashes pallor or icterus. Neuro without focal deficits. Tube feeding tolerated at goal of 95 an hourwhich would put him at his 24- hour calorie goals with about 18 hours of feed time, and allow him 6 hours off. Nutrition notes that often with NG tube it is hard to have tolerance at a rate higher than this, and given the short duration that he will need to be on the tube feeds, he is okay with this being the plan overall. safe/stable for home but Equipment/supplies not able to be set up until tomorrow. Extensive discussion on what to watch for with malabsorption/tube feed intoleranceand nursing updated me through the day the diarrhea did not seem to be a large/pervasive problem. Subjective Patient seen and evaluated at bedside this morning. No acute events overnight. No acute concerns this am. Tolerating tube feeds at 95ml/hr. Still with loose stools. Review of Systems Review of Systems: reviewed, per HPI Physical Exam Physical Exam: Constitutional: well-appearing, no acute distress HEENT: NCAT, no conjunctival injection, NJ in place CV: well perfused Resp: no increased WOB GI: non-distended MSK: no gross deformities appreciated Skin: warm, dry, no rash appreciated Neuro: alert, oriented, no focal neurologic deficit appreciated Results & Data Results & Data Vital Signs (Past 12 Hours) Vital Signs Temp Pulse Resp BP Pulse Ox O2 Del Method 03/09/24 15:43 36.8 C 83 18 115/76 94 Room Air 03/09/24 07:31 36.6 C 75 18 93/51 L 95 Room Air Resident Activity Tracking Resident Involvement: Resident Care Provided Care Provided: Adult Hospital Medicine (2) Chronic obstructive pulmonary disease COPD type: emphysema Emphysema type: centrilobular Qualified Code(s): J43.2 - Centrilobular emphysema
--- NOTE | 2024-03-09 18:39 | Billing Data ---
Date of Service March 09, 2024 Coding Level of Care Code 12300 SUB INP/OBS CARE
[2024-03-09] MEDS: LOPERAMIDE HCL 2 MG CAP PO PRN (20:12)
[2024-03-09] MEDS ORDERED: Nursing to Pharmacy Communication SCH (23:45)
[2024-03-10] MEDS: PEPTAMEN 1.5 CAL 1,000 ML BAG JT SCH (00:01)
[2024-03-10 06:27] LABS: Hematocrit (blood only) 37.6 % (42.0-52.0); Hemoglobin 12.3 g/dl (14.0-18.0); Mean Corpuscular Hemoglobin 30.5 pg (25.0-34.0); Mean Corpuscular Hgb Conc 32.7 g/dL (32.0-36.0); Mean Corpuscular Volume 93.3 fL (80.0-100.0); Mean Platelet Volume 10.5 fL (9.4-12.4); Platelet Count 305 K/uL (130-400); RDW Coefficient of Variation 13.1 % (11.5-14.5); RDW Standard Deviation 44.6 fL (36.4-46.3); Red Blood Count 4.03 M/uL (4.70-6.10); White Blood Count 5.87 K/ul (4.8-10.8)
[2024-03-10 06:53] LABS: BUN Creatinine Ratio 24.1 (10-20); Calcium 8.8 mg/dl (8.6-10.3); Creatinine Clr Calc Pharmacy 54.1 ml/min; Est GFR (African American) 56.1 ml/min; Est GFR (Non-African American) 48.4 ml/min; Potassium 4.4 mmol/L (3.5-5.1)
[2024-03-10 12:15] VITALS: PULSE 80
[2024-03-10 14:33] VITALS: BP 126/78; RESP 18; TEMP 97.7; O2SAT 95
--- NOTE | 2024-03-10 14:39 | Discharge Summary ---
Date of Service March 10, 2024 Admission HPI Per Admitting Provider Pt is a 73 yo male with PMH of COPD and HTN presenting [place] the hospital [place] [facility] [place]. [place] at [facility] 02/25-02/27 at which point he was [place] [facility] intervention of possible necrotic mass vs. contained perforation of a duodenal diverticula. [place] [facility] [place] was determined that the pt most likely had a duodenal ulcer w/ microperforation. Pt had an EGD 03/02 which showed a large area of necrosis of the pt's duodenum w/ a 4 cm stone which was destroyed with lithotripsy. GI planned to intervene with a duodenal stent but, per pt, this would not stay in place. He did have an NJ tube placed for nutrition. On arrival to [facility], pt is doing well. He has no complaints of pain- he has not had any pain since the surgery. He does note he is still having diarrhea (which started after being given a bolus tube feed) but the diarrhea has much improved. He has no other concerns upon admission. Admission Exam Per Admitting Provider Constitutional: NAD, vitals WNL. Eyes: Conjunctivae normal. NJ tube in place and resecured by nursing. Respiratory: CTA bilaterally. Non labored breathing. No rhonchi, wheezing, or crackles. Cardiovascular: RRR. No murmurs noted. No LE edema. Gastrointestinal (Abdomen): Nontender, +BS. No masses noted. Skin: No rashes or skin lesions noted. Noted bandage applied to LLE. Neurologic: Sensation grossly intact. No FND appreciated. Psychiatric: Speech of normal pace and content. Mood and affect congruent. Principal Diagnosis Duodenal microperforation Discharge Exam Constitutional: well-appearing, no acute distress HEENT: NCAT, no conjunctival injection, NJ in place CV: well perfused Resp: no increased WOB GI: non-distended MSK: no gross deformities appreciated Skin: warm, dry, no rash appreciated Neuro: alert, oriented, no focal neurologic deficit appreciated Discharge Data Allergies Allergy/AdvReac Type Severity Reaction Status Date / Time Sulfa (Sulfonamide Allergy Unknown Verified 02/23/24 09:06 Antibiotics) Hospital Course (1) Duodenal perforation: Pt is a 73 yo male with PMH of COPD and HTN presenting to the hospital via [place] [facility] [place]. He was hospitalized at [facility] 02/25-02/27 at which point he was transferred [place] [facility] [place] He had interventions to repair his duodenal ulcer/perf and gallstone stone removed. He now returns for further medical management. Duodenal perforation w/ gallstone/abscess s/p EGD and lithotripsy - s/p empiric ABX and antifungals x5 days; he continues on augmentin BID until 03/16 (14 day course) - no PPI d/t necrosis - f/u CTAP with IV contrast in 4-6 weeks for reassessment - keep NPO with NJ tube but able to take meds by mouth with water sips; plan for 4-6 weeks of NJ tube; pt will need outpatient [place] [facility] f/u Tube feeds - tolerating feeds at 95ml/hr - as above, all meds should be taken PO - monitor electrolytes, BS Diarrhea - secondary to tube feeds and antibiotics - Imodium PRN Hypertension - continue valsartan 320 mg PO daily and HCTZ 12.5 mg PO daily COPD - continue home Trelegy; pt requesting to use his own home inhaler rather than formulary equivalent as this did not work for him in [place] (2) Chronic obstructive pulmonary disease: (3) On tube feeding diet: (4) Diarrhea: (5) Hypertension: Total Time Total Time Spent Total Time Spent (In Minutes): <30 Discharge Plan Discharge Items Patient Disposition: Home - Self-Care Reason For Visit[place] [facility] [place] Diagnosis: Duodenal microperforation Activity: Resume your previous activity Activity Comment: as tolerated Non-emergency contact: Primary Care Provider and Vessel Liner Call non-emergency contact if: you have any medication questions, your symptoms worsen and you have a fever Follow-up/Referrals: Ze Reddy MD [Primary Care Provider] - 03/13/24 2:05 pm Diet: Regular Addtl Attending Provider Instructions: You were admitted to the hospital after you were treated for a perforation of your intestine at [facility]. While you were here we titrated your tube feeds to ensure that you could tolerate them and arranged for you to have the supplies you need to go home. A discharge summary will be sent to your primary care physician to ensure cont inuity of care. Please bring this discharge summary with you to your next office appointment so that your provider can review it at that time. Follow-up appointments: Make a follow-up appointment with your PCP within the next week. It is very important that you follow up with them shortly after discharge from the hospital. Be sure to follow up with gastroenterology in [place] as instructed. Keep all your follow-up appointments as already scheduled. If you cannot make an appointment, notify your provider. Medications: Your medication list has been reviewed and reconciled upon discharge to ensure accuracy and continuity of care. An updated list of all your medications is included with your hospital discharge paperwork. Please review this list closely, and make note of any changes. We sent a new medication called amoxicillin-clavulanate (Augmentin) to your pharmacy. Take Augmentin (875mg) one tablet twice daily with food for a total of 13 more doses (through 03/16/24). If you have any issues filling these prescriptions, please call [phone] and ask to leave a message for Dr. Barney Sahu. Take your medications as instructed; do not skip a dose of your medicines. Make sure all of your doctors know every medicine you are taking (including [id number]-lmbpobx medicines, vitamins, and supplements). Call your primary care provider before taking any new medicines (including hkto-xkh-kdrjdax medicines, vitamins, and supplements), because some of these may interact with your current medications, or may make your symptoms worse. Tell your primary care provider if you cannot afford your medications. CONTACT YOUR PRIMARY CARE PROVIDER if you experience any of the following: Increased pain Difficulty with your tube feeds Difficulty following your treatment plan, or difficulty taking medications CALL 911 OR GO TO THE EMERGENCY DEPARTMENT if you experience any of the following: Sudden, severe abdominal pain or nausea/vomiting Severe chest pain, or chest pain that radiates (moves) to your jaw or arm Sudden, severe shortness of breath or difficulty breathing Thank you for allowing us to participate in your care. Pending Studies at Discharge: No Stand-Alone Forms: My [facility] Medications and DC Order Prescriptions: New amoxicillin-pot clavulanate 875-125 mg Tablet 1 tab PO BID Qty: 13 0RF Continued albuterol sulfate [Ventolin HFA] 90 mcg/actuation HFA aerosol inhaler 2 inh inhalation UD PRN (Reason: Other) Rx Instructions: 2 puff inhalation q4h no fill history available Jovita Ellipta 100-62.5-25 mcg blister with device 1 inh inhalation DAILY Qty: 60 11RF valsartan 320 mg tablet 320 mg PO DAILY multivitamin [Daily Multi-Vitamin] tablet 1 tab PO DAILY hydrochlorothiazide 25 mg tablet 12.5 mg PO DAILY red yeast rice 600 mg capsule 1,200 mg PO DAILY Rx Instructions: give with meal/snack coenzyme Q10 [Vitaline CoQ10] 1 tab PO DIRECTED Rx Instructions: otc, as directed. unknown dose. Discharge Orders: Discharge Order (Routine); Ordered 03/10/24 Ordered By: Barney Sahu Admission Data Admit Date/Time: 03/08/24 01:07 Attending Provider: Jorge Menjivar Admit Provider: Kyrie Ramos Primary Care Provider: Ze Reddy Other Providers: Jose Ga Other Interventions: Discharge Summary Assessment (RN) Last Done: 03/10/24 15:24 Supervising Physician Co-Signing Physician Notes I personally examined the patient and verified all nation points of history and exam, discussed case, and agree with decision making with Dr Sahu Feeling well. everything set up for home. Vitals noted, in general he is awake and alert pleasant no distress. NJ tube without any local breakdown. Breathing unlabored no accessory muscle use good effort. Skin without rashes pallor or icterus. Neuro without focal deficits. Tube feeding tolerated at goal of 95 an hourwhich would put him at his 24- hour calorie goals with about 18 hours of feed time, and allow him 6 hours off. tolerating well. safe/stable for home. otherwise as above Resident Activity Tracking Resident Involvement: Resident Care Provided Care Provided: Adult Hospital Medicine
--- NOTE | 2024-03-10 18:48 | Billing Data ---
Date of Service March 10, 2024 Coding Level of Care Code 09910 IN/OBS DISCH 30 MIN/LESS
== END 2024-03-10 16:02 | disposition home or self-care (01) | DRG 380 ==
LOC: 3W 03-08 01:07 → SUATTDRO 03-08 01:07